=== PATIENT | female | born 1965 | race Caucasian/White ===

== ENCOUNTER 2018-06-12 03:40 | Inpatient (IN) ==
[2018-06-12] MEDS ORDERED: LR 0 ML ONE (05:41)
[2018-06-12] MEDS ORDERED: INVANZ 1 GM/NS 1 GM/50 ML IVPB ONE (05:41)
[2018-06-12] MEDS ORDERED: SENSORCAINE-MPF 0.5%/EPI 1:200,000 ONE (06:27)
[2018-06-12] MEDS ORDERED: LR 1,000 ML ONE ×3 (06:27→15:08)
[2018-06-12] MEDS ORDERED: DIPRIVAN 1% ONE (06:27)
[2018-06-12] MEDS ORDERED: NORCURON ONE ×2 (06:29→10:06)
[2018-06-12] MEDS ORDERED: XYLOCAINE-MPF 2% ONE (06:29)
[2018-06-12] MEDS ORDERED: QUELICIN (DOSE) ONE (06:29)
[2018-06-12] MEDS ORDERED: SODIUM CHLORIDE 0.9% 10 ML ONE (06:29)
[2018-06-12] MEDS ORDERED: VERSED ONE (06:30)
[2018-06-12] MEDS ORDERED: MURI-LUBE MINERAL OIL ONE (06:55)
[2018-06-12] MEDS ORDERED: FENTANYL ONE (07:15)
[2018-06-12] MEDS ORDERED: ZOFRAN ONE (07:20)
[2018-06-12] MEDS ORDERED: DECADRON ONE (07:20)
[2018-06-12] MEDS ORDERED: LUBRIFRESH PM OPH OINTMENT ONE (07:31)
[2018-06-12] MEDS ORDERED: OFIRMEV 1000 MG/ISOTONIC SOLN 1,000 MG/100 ML BOTTLE ONE (09:06)
[2018-06-12] MEDS ORDERED: DILAUDID ONE (09:07)
[2018-06-12] MEDS ORDERED: LOPRESSOR ONE (09:20)
--- NOTE | 2018-06-12 10:40 | OPERATIVE NOTE ---
PROCEDURE DATE: 06/12/2018 PREOPERATIVE DIAGNOSIS: Colorectal cancer. POSTOPERATIVE DIAGNOSIS: Colorectal cancer. PROCEDURE PERFORMED: Cystoscopy and bilateral lighted externalized stent placement. SURGEON: Dr. Ori Pratt. COMPLICATIONS: None. BLOOD LOSS: Minimal. DRAINS: Bilateral externalized stents and 16-German Littlejohn catheter. OPERATIVE FINDINGS: Patient had a normal cystoscopy with no evidence of any urethral stricture. No evidence of mucosal abnormalities in the bladder. No diverticulum, no cellules, no bladder stones. Both ureteral orifices were visualized, effluxing clear urine. Following this, the patient had placement of externalized stents with the Hansa lighted externalized stent system. These externalized stents went in easily and then internal fiberoptics were then inserted and tied to one another. Then a 16-German Littlejohn catheter was then inserted. INDICATIONS FOR PROCEDURE: Ms. Goodman is a 52 year old, who initially presented to General Surgery and was found to have a rectal mass that was a relatively large on biopsy and shown to be colorectal cancer. She underwent chemo and radiation and presented for definitive surgical intervention with Dr. Sequeira. Dr. Sequeira desired placement of externalized lighted ureteral stents. Risks, benefits, and alternatives to surgical procedure discussed with the patient and patient elected to proceed. DESCRIPTION OF PROCEDURE: After informed consent was obtained, the patient was brought to the operating, placed on the operating table in the supine position. She received preoperative antibiotics with Invanz, underwent general anesthesia and was placed into a dorsal lithotomy position. She was prepped and draped in usual sterile fashion. A preoperative time-out was performed with all parties in agreement, including Anesthesia, Surgical and Nursing staff. At which time a 19-German cystourethroscope was inserted through the urethra and entered into the bladder. The urethra appeared to be normal. No evidence of any strictures. The entirety of the bladder was inspected with the 30 degree lens. No evidence of any mucosal abnormalities within the bladder. No diverticulum, no cellules, no evidence of cystocele. Following this, bilateral ureteral orifices were visualized and effluxed clear yellow urine, at which time the Langeloth lighted system was then opened. The externalized stents were then inserted starting on the right, and this was placed to a measurement of 25 cm at the ureteral orifice. The cystourethroscope was removed overlying the stent and then was reinserted for placement of the left stent. Once this was placed at 25 cm endoscopically visualized, the cystoscope was then removed and then the internal fiberoptic cables were then inserted into each of the stents and then hubbed to their appropriate position. Following this, repeat cystourethroscope was performed, which showed good placement of the ureteral catheters. The bladder was left full, and then a 16-German Littlejohn catheter was inserted with good drainage and filled with 10 mL of sterile water. A Silk suture was then tied to both externalized stents to keep them together and in place. This was attached to the right lower extremity. Following this, this terminated my portion of the procedure and Dr. Sequeira took over. For his full operative report of his procedure, please see separately dictated operative note. cc: MD Jessica Allen MD MTDD
[2018-06-12] MEDS ORDERED: ROBINUL ONE (13:39)
[2018-06-12] MEDS ORDERED: NEOSTIGMINE ONE (13:40)
[2018-06-12 14:40] LABS: HEMATOCRIT 29.8 % (37.0-47.0); HEMOGLOBIN 9.1 g/dL (12.0-16.0); MCHC 30.5 g/dL (33-37); MCV 94.9 FL (81-99); MPV 8.4 FL (7.4-10.4); RBC 3.14 XMIL (4.2-5.4); RDW 17.4 % (11.5-14.5); WBC 15.83 X1000 (4.8-10.8)
[2018-06-12 14:54] LABS: AGAP 9; BUN 6 mg/dL (8-22); CALCIUM 8.4 mg/dL (8.8-10.2); CHLORIDE 101 mmol/L (98-107); COSMO 272; CREATININE 0.5 mg/dL (0.5-0.9); ESTIMATED GFR > 60; GLUCOSE 174 mg/dL (70-104); SODIUM 135 mmol/L (136-145); TCO2 25 mmol/L (25-35)
[2018-06-12] MEDS: DILAUDID ONE ×3 (15:06→23:33)
[2018-06-12] MEDS ORDERED: XANAX PO PRN (15:40)
[2018-06-12] MEDS ORDERED: ZOFRAN IV PRN (15:40)
[2018-06-12 16:14] LABS: INR 1.08; PROTIME 14.9 Seconds (11.0-16.0)
[2018-06-12 16:15] LABS: PTT 36.5 Seconds (22.3-41.8)
[2018-06-12] MEDS: LR 1,000 ML IV SCH (16:41)
[2018-06-12 16:47] LABS: URINE SOURCE CATH
[2018-06-12 16:57] LABS: UR EPITHELIAL CELLS <10 /HPF (<10); URINE BACTERIA NEGATIVE /HPF; URINE RBC TNTC /HPF (<10); URINE WBC TNTC /HPF (<10)
[2018-06-12 16:59] LABS: BILIRUBIN URINE NEGATIVE (NEGATIVE); BLOOD URINE LARGE (NEGATIVE); COLOR ORANGE; GLUCOSE URINE NEGATIVE (NEGATIVE); KETONE URINE TRACE mg/dL (NEGATIVE); LEUKOCYTES URINE SMALL (NEGATIVE); NITRITE URINE NEGATIVE (NEGATIVE); PH URINE 6.5; PROTEIN URINE 100 mg/dL (NEGATIVE); SP GRAVITY URINE 1.024; TURBIDITY URINE TURBID (CLEAR); UROBILINOGEN URINE NORMAL (NORMAL)
[2018-06-12] MEDS: DILAUDID IV PRN ×2 (18:18→21:30)
[2018-06-12] MEDS: PERIDEX MT SCH (20:56)
[2018-06-12] MEDS: ZYPREXA PO SCH (20:56)
[2018-06-12] MEDS: ZOCOR PO SCH (20:56)
[2018-06-12] MEDS: OFIRMEV 1000 MG/ISOTONIC SOLN 1,000 MG/100 ML BOTTLE IV SCH (20:56)
--- NOTE | 2018-06-13 01:55 | OPERATIVE NOTE ---
PROCEDURE DATE: 06/12/2018 PREOPERATIVE DIAGNOSIS: Rectal cancer. POSTOPERATIVE DIAGNOSIS: Rectal cancer. PROCEDURES PERFORMED: 1. Robotic laparoscopic assisted low anterior resection with mucous fistula placement. 2. Lighted ureteral stents placed by Dr. Pratt. SURGEON: Geoffrey Sequeira MD. FOUNDRY FINISHER: Kristin Majano MD. ESTIMATED BLOOD LOSS: 100 mL. SPECIMENS: 1. Sigmoid colon and rectum. 2. Presacral biopsy. ANESTHESIA: General. INDICATION FOR PROCEDURE: The patient is a 52-year-old female with a low rectal carcinoma who is status post neoadjuvant therapy and is local locally advanced on her imaging. FINDINGS: There was a tattoo lesion that was consistent with her preoperative examination. It was somewhat smaller, but remained very firm and fixed posteriorly. From a transabdominal view, there was what appeared to be gross extra rectal extension into the presacral tissues, with focal purulence consistent with perforation of the tumor, but no evidence of metastatic disease widely. DESCRIPTION OF PROCEDURE: Risks, benefits and alternatives discussed with the patient and she consented to the procedure. She was seen preoperatively and surgical site was confirmed. She was taken to the operating room and placed in the supine position. General anesthesia was induced without complication. All bony prominences were padded. She was then placed in lithotomy. All bony prominences were padded. Her abdomen and perineum was prepped and draped in usual fashion. After time-out Dr. Pratt placed lighted stents bilaterally, for details please see his record after this. We closed her ostomy with a Prolene suture and covered with a Tegaderm dressing. We then made an incision in the supraumbilical midline approximately 20 cm superior to the pubic symphysis, and entered the abdomen in an open controlled fashion and it was then insufflated. We then selected a place for our stapler arm between the lateral to the ileostomy and midway between the ASIS and umbilicus. We placed this under direct visualization protecting the ileostomy. We then placed a far left lateral port just above the white line of Toldt, and placed another trocar in the left upper quadrant and an assistant director of nursing trocar in the right upper quadrant. We then mobilized the small bowel out of the pelvis, this was easily done. The robot was docked. We used a Cadiere forceps in her left hand, hook cautery in the right, and a combination of a vessel sealer in her right, and a grasping retractor in her accessory hand. We identified the SOUMYA pedicle and divided this above the level of the sacral promontory with a vessel sealer device. We then continued our medial to lateral dissection using the lighted stents as we went to confirm the position of the ureter and we protected these. We then continued our dissection distally. This plane was relatively normal; however, as we began about the level of sacral promontory we began encountering both peritumoral and post radiation changes. We had to work in a combination fashion both posterior and anterior to establish this plane, and laterally. We encounter tumor densely posteriorly in right lateral. The left lateral and anterior plane did show radiation changes, but no gross tumor deposits here. We worked for some time here protecting the retroperitoneal structures and the presacral plexus; however, we could not make progress. At this point we felt we were going to need to convert to a lower midline open approach for the pelvic portion, but we did mobilize the left colon laparoscopically along the avascular plane of the white line, and then we also did firefly to confirm that we had adequate perfusion of our descending colon and we did. At this point we undocked the robot, but we did not confirm hemostasis prior to doing all this. We made a lower midline incision and used a Kareem retractor and we continued our dissection, I got Dr. Majano to help with this as it was densely inflamed posteriorly, we are obviously concerned about the presacral veins, but we were able through a combination of blunt and electrocautery dissection mobilize this posteriorly. At the site of the tumor, there did appear to be a posterior extension into the presacral area, very inflamed. We took a biopsy of this presacral mass. There is also some purulence here consistent with rectal perforation related to the tumor, but we were able to complete our circumferential dissection and we were able to get to an area distal that was normal, and we transected this with a green load TA stapler. The distal rectal stump was very friable, we had close it with a 3-0 Vicryl. Given all these findings and the possibility of gross residual tumor, we elected to not create an anastomosis. She was already diverted with an ileostomy that she has been managing well. We confirmed hemostasis and irrigated the pelvis. We elected to create a mucous fistula with the descending colon. We ligated the marginal artery, and then the proximal colon was resected with a EDGARD stapler. We noted hemostasis. All bowel was in neutral position. There was no gross spillage of stool. Our distal staple line of the rectum was approximately 3 cm above the pelvic floor, quite low. Opening the specimen we did note that we had good proximal and distal margins, but obviously very concerned about our radial margin. At this point, we closed our trocar fascial incisions, and then closed the midline fascia with a running single strand #1 PDS suture. We irrigated the superficial wound. We closed the lower midline with lambert, but prior to closing this I made a circular incision overlying the left rectus for our mucous fistula and brought the corner of the colon out through this. After we closed all incisions, I removed the corner and matured this with 3-0 Vicryl sutures at the skin level. A dressing was applied here, Dermabond to the port sites. Overall she tolerated this well. There was no complication. Counts were correct x2. She has awoken and transferred to recovery. I did remove her ureteral stents at the end of the case. Dr. Majano was present during the open portion of this operation. He facilitated identification of anatomy and our dissection given the dense post radiation and neoplastic changes. cc: Jessica Sequeira MD [facility]
[2018-06-13] MEDS: OFIRMEV 1000 MG/ISOTONIC SOLN 1,000 MG/100 ML BOTTLE IV SCH ×3 (02:49→15:33)
[2018-06-13] MEDS: DILAUDID IV PRN ×7 (03:38→22:03)
[2018-06-13 06:18] LABS: HEMATOCRIT 26.3 % (37.0-47.0); HEMOGLOBIN 7.9 g/dL (12.0-16.0); MCH 29.2 PG (27-31); MPV 8.8 FL (7.4-10.4); RBC 2.71 XMIL (4.2-5.4); RDW 17.8 % (11.5-14.5); WBC 12.73 X1000 (4.8-10.8)
[2018-06-13 06:30] LABS: AGAP 12; BUN 5 mg/dL (8-22); CALCIUM 8.7 mg/dL (8.8-10.2); CHLORIDE 105 mmol/L (98-107); COSMO 282; CREATININE 0.5 mg/dL (0.5-0.9); ESTIMATED GFR > 60; GLUCOSE 96 mg/dL (70-104); POTASSIUM 4.1 mmol/L (3.5-5.1); SODIUM 143 mmol/L (136-145); TCO2 26 mmol/L (25-35)
--- NOTE | 2018-06-13 07:57 | PROGRESS NOTE ---
DATE: 06/13/2018 SUBJECTIVE: Postoperative day 1 from cystoscopy and bilateral externalized stent placement and robotic laparoscopic-assisted lower anterior resection with mucous fistula placement by Dr. Sequeira. The patient has been doing well overnight. She is having a little bit of pain, but appears to be appropriate. She had a little bit of bloody urine output after removal of externalized stents; however, her urine is clear, yellow this morning. She denies any flank pain. PHYSICAL EXAMINATION: Vital signs: Temperature 98.5 degrees, heart rate 102, blood pressure 123/76, oxygen saturation 97% on room air. Cardiovascular: Slight tachycardia this morning. Regular rhythm. Respiratory: Good respiratory effort without audible wheezing or rales. Abdomen: Soft, nontender, nondistended. Abdominal incisions closed with Dermabond. Cutaneous fistula present in right lower quadrant, covered with bag. : Without suprapubic tenderness. Urethral catheter in place with clear, yellow urine. LABS: White blood cell count 12.73, hemoglobin 7.9, hematocrit 26.3, platelets 504,000. Sodium 143, potassium 4.1, chloride 105, bicarb 5, creatinine 0.5, glucose 96. ASSESSMENT AND PLAN: Ms. Goodman is a 52-year-old who is postop day 1 from a robotic-assisted laparoscopic removal of a rectal mass with placement of externalized ureteral stents by Urology. Overall, patient has been doing well from a urologic standpoint, has made good urinary output overnight. Her urine is clear. No evidence of blood present. We will continue Littlejohn catheter per GI surgery protocol. We will continue to monitor her renal function. If any urologic issues arise, please notify Urology on-call. We will sign off at this time. No need for postop follow up with Urology unless issues arise. cc: MD Jessica Allen MD MTDD
[2018-06-13] MEDS: LR 1,000 ML IV SCH ×3 (09:11→18:02)
[2018-06-13] MEDS: PERIDEX MT SCH ×2 (09:13→20:08)
[2018-06-13] MEDS: LOVENOX SUBQ SCH (09:14)
[2018-06-13] MEDS: CYMBALTA PO SCH (09:14)
--- NOTE | 2018-06-13 10:59 | GENERAL SURGERY PROGRESS NOTE ---
DATE: 06/13/2018 SUBJECTIVE: She feels much better this morning. The ostomy is working. No vomiting. She is tolerating clear liquids. OBJECTIVE: Vital Signs: I reviewed her vital signs. Low-grade tachycardia. No fevers. Blood pressure 124/71, oxygen saturations mid to high 90s on 2 L. General: She is alert. Abdomen: Soft. Ostomy is pink. LABS: White count 12, hematocrit 26, creatinine is 0.5. ASSESSMENT AND PLAN: A 52-year-old female status post low anterior resection. She already had a diverting loop and now we created a mucous fistula distally. She is overall doing okay. She is on appropriate home medications. We will keep her Littlejohn given her low pelvic dissection. She is on prophylactic Lovenox. Continue her fluids as well. She was a little dehydrated coming in. She is on Tylenol. I have encouraged her to be out of bed today and ambulate. I suspect we can discontinue her Littlejohn and advance her diet. cc: Jessica Sequeira MD
[2018-06-13] MEDS: ZOCOR PO SCH (20:08)
[2018-06-13] MEDS: ZYPREXA PO SCH (20:08)
[2018-06-14] MEDS: DILAUDID IV PRN ×5 (01:04→14:19)
[2018-06-14] MEDS: LR 1,000 ML IV SCH (01:07)
[2018-06-14] MEDS: LOVENOX SUBQ SCH (09:30)
[2018-06-14] MEDS: CYMBALTA PO SCH (09:30)
[2018-06-14] MEDS: PERIDEX MT SCH (09:30)
[2018-06-14 09:41] LABS: AGAP 8; BUN 3 mg/dL (8-22); CALCIUM 8.9 mg/dL (8.8-10.2); CHLORIDE 103 mmol/L (98-107); COSMO 277; CREATININE 0.5 mg/dL (0.5-0.9); ESTIMATED GFR > 60; GLUCOSE 114 mg/dL (70-104); POTASSIUM 3.1 mmol/L (3.5-5.1); SODIUM 140 mmol/L (136-145); TCO2 29 mmol/L (25-35)
[2018-06-14] MEDS ORDERED: POTASSIUM CHLORIDE 10% LIQUID PO ONE (10:59)
[2018-06-14 12:04] LABS: BASO# 0.02 X1000 (0.0-0.2); BASO% 0.1 % (0.0-0.8); EOS# 0.07 X1000 (0.0-0.7); EOS% 0.5 % (0.0-10.0); HEMOGLOBIN 8.6 g/dL (12.0-16.0); IMM GRAN% 0.7 % (0.0-0.5); LYMPH% 1.4 % (20.5-51.1); MCHC 29.7 g/dL (33-37); MCV 97.6 FL (81-99); MONO# 0.72 X1000 (0.11-0.59); MONO% 5.1 % (1.7-9.3); MPV 8.3 FL (7.4-10.4); NEUT# 12.98 X1000 (1.4-6.5); NEUT% 92.2 % (42.2-75.2); PLT 560 X1000 (130-400); RBC 2.97 XMIL (4.2-5.4); RDW 17.1 % (11.5-14.5); WBC 14.09 X1000 (4.8-10.8)
[2018-06-14 12:49] VITALS: BP 135/71
== END 2018-06-14 14:44 | disposition home or self-care (01) | DRG 329 ==
LOC: SURHOLD 03:40 → EDSTATUS 07:00 → 4N 10:26
PROVIDERS: ADMIT Surgery; ATTEND Surgery
CPT/HCPCS: 80048; 81001; 85025; 85027; 85610; 85730; 87088; 88305; 88309; 88313; 94761; 94799; 97116; 97162; 97530; A9270; J0131; J0330; J1100; J1170; J1335; J1650; J2250; J2405; J3010; J7120; S2900

== ENCOUNTER 2019-01-03 16:12 | Inpatient (IN) ==
[2019-01-03] MEDS ORDERED: NS 1,000 ML IV ONE ×3 (16:45→20:39)
[2019-01-03 16:55] LABS: BLOOD TYPE ARTERIAL; HCO3-(ACT) 23.4 mmoll (20.0-26.0); METHB 0.7 % (0.0-1.5); O2(CT) 12.5 mL/dL (15.0-23.0); O2HB 95.6 % (95.0-99.0); PCO2(98.6) 32 mmHg (35-45); PO2(98.6) 81 mmHg (60-100); SAMPLE BLOOD; SAO2 98.1 % (95.0-100.0); THB 9.2 g/dL (11.5-17.4); pH(98.6) 7.44 (7.35-7.45)
[2019-01-03 16:57] LABS: ALLEN TEST NO; MODALITY ROOM AIR
[2019-01-03 16:58] LABS: BASO# 0.05 X1000 (0.0-0.2); EOS# 0.01 X1000 (0.0-0.7); EOS% 0.2 % (0.0-10.0); HEMATOCRIT 27.9 % (37.0-47.0); HEMOGLOBIN 9.3 g/dL (12.0-16.0); IMM GRAN# 0.09 X1000 (0.0-0.04); IMM GRAN% 1.9 % (0.0-0.5); LYMPH# 0.48 X1000 (1.2-3.4); LYMPH% 10.1 % (20.5-51.1); MCH 35.2 PG (27-31); MCHC 33.3 g/dL (33-37); MCV 105.7 FL (81-99); MONO# 1.54 X1000 (0.11-0.59); MONO% 32.3 % (1.7-9.3); MPV 9.9 FL (7.4-10.4); NEUT% 54.5 % (42.2-75.2); PLT 124 X1000 (130-400); RBC 2.64 XMIL (4.2-5.4); RDW 15.9 % (11.5-14.5); WBC 4.77 X1000 (4.8-10.8)
[2019-01-03 17:04] LABS: INR 1.13; PROTIME 15.4 Seconds (11.0-16.0)
[2019-01-03 17:05] LABS: PTT 31.8 Seconds (22.3-41.8)
[2019-01-03 17:14] LABS: BANDS 4 % (0-1); LYMPHS 11 % (21-51); MONO 16 % (1-9); NRBC 4 % (0-0); SEGS 65 % (42-75)
[2019-01-03 17:15] LABS: AGAP 14; ALB/GLOB RATIO 1.5; ALBUMIN 3.5 g/dL (3.5-5.0); ALKALINE PHOSPHATASE 158 U/L (32-104); BUN 6 mg/dL (8-22); CHLORIDE 98 mmol/L (98-107); CK PROFILE 22 U/L (24-173); COSMO 269; CREATININE 0.9 mg/dL (0.5-0.9); ESTIMATED GFR > 60; GLUCOSE 123 mg/dL (70-104); GOT 17 U/L (10-30); GPT 12 U/L (10-36); POTASSIUM 3.4 mmol/L (3.5-5.1); SODIUM 135 mmol/L (136-145); STOMATOCYTES 1+; TCO2 23 mmol/L (25-35); TOTAL BILIRUBIN 0.36 mg/dL (0.20-1.00); TOTAL PROTEIN 5.9 g/dL (6.3-8.3)
[2019-01-03] MEDS ORDERED: ROCEPHIN 1 GM in NS 50 ML IV ONE (17:22)
--- NOTE | 2019-01-03 17:41 | Diag Imaging Result Doc PS360 ---
CHEST-PORTABLE - 01/03/2019 INDICATION: pna COMPARISON: 04/13/2018 FINDINGS: Stable right chest port in good position. The lungs are clear. Heart size is normal. No pneumothorax or pleural effusion. IMPRESSION: Negative exam. Electronically signed by Chele Wright 01/03/2019 5:39 PM
[2019-01-03 18:33] LABS: URINE SOURCE VOIDED
[2019-01-03 18:37] LABS: BILIRUBIN URINE NEGATIVE (NEGATIVE); BLOOD URINE TRACE (NEGATIVE); COLOR YELLOW; GLUCOSE URINE NEGATIVE (NEGATIVE); KETONE URINE NEGATIVE (NEGATIVE); LEUKOCYTES URINE LARGE (NEGATIVE); NITRITE URINE NEGATIVE (NEGATIVE); PROTEIN URINE 70 mg/dL (NEGATIVE); TURBIDITY URINE HAZY (CLEAR); UROBILINOGEN URINE NORMAL (NORMAL)
[2019-01-03 18:40] LABS: UR EPITHELIAL CELLS <10 /HPF (<10); URINE BACTERIA NEGATIVE /HPF; URINE RBC <10 /HPF (<10); URINE WBC TNTC /HPF (<10)
--- NOTE | 2019-01-03 20:11 | PROVIDER DOCUMENTATION ---
This chart was entered by Lisa Garcia Scribe, acting as scribe for Kizzy Johnston MD. HPI-Syncope/Dizziness - General Chief Complaint: Syncope Stated Complaint: SYNCOPE,LOW BP,COLON CANCER Time Seen by Provider: 01/03/19 16:23 Source: patient, family (mom) Allergies/Adverse Reactions: Patient Allergies Allergy/AdvReac Type Severity Reaction Status Date / Time No Known Allergies Allergy Verified 12/02/18 10:26 Home Medications: Home Medication List Medication Instructions Recorded Confirmed Last Taken Type Simvastatin 40 mg PO HS 10/23/12 12/02/18 12/02/18 09:00 History Duloxetine [Cymbalta] 60 mg PO DAILY 03/04/18 12/02/18 12/02/18 09:00 History Olanzapine [Zyprexa] 5 mg PO QHS 04/13/18 12/02/18 12/02/18 09:00 History Diphenoxylate/Atropine [Lomotil] 1 each PO 4XDAY PRN PRN #60 tablet 04/15/18 12/02/18 06/12/18 04:30 Rx Alprazolam 0.5 mg PO PRN PRN 06/02/18 12/02/18 12/02/18 09:00 History Levothyroxine [Synthroid] 25 microgm PO DAILY 06/02/18 12/02/18 12/02/18 09:00 History Loperamide [Imodium] 2 mg PO PRN PRN 06/02/18 12/02/18 11/30/18 History - History of Present Illness-Syncope/Dizzy Nature of Presenting Problem: 53yof presents to ED cc syncope, dizziness, decreased appetite and decreased blood pressure. Pt has hx of rectal cancer and is on Chemo. Pt denies N/V/D, SOB or chest pain. Prior Episodes: reports: remote history Onset/Duration: reports: this afternoon Timing: reports: gone now, intermittent Position/Activity at time of episode: reports: standing Symptoms prior to episode: reports: visual disturbance Context: reports: collapsed Loss of Consciousness: no loss of consciousness Location of injury. (If syncope resulted in an injury.): reports: none Current Symptoms: reports: none/feels normal Recently Seen Here or By Another Healthcare Provider: No - Dizziness Dizziness Related Current/Associated Symptoms: reports: none/feels normal Review of Systems - Adult - REVIEW OF SYSTEMS - ADULT Constitutional: reports: see HPI, fatique. denies: chills, fever Eyes: reports: no symptoms reported Ears, Nose, Mouth & Throat: reports: no symptoms reported Cardiovascular: reports: see HPI, other (decreased blood pressure). denies: chest pain, palpitations Respiratory: reports: no symptoms reported Gastrointestinal: reports: see HPI, poor appetite. denies: diarrhea, nausea, vomiting Genitourinary: reports: no symptoms reported Musculoskeletal: reports: no symptoms reported Integumentary: reports: no symptoms reported Neurological: reports: see HPI, dizziness/vertigo, syncope. denies: headache/migraines, slurred speech Psychiatric: reports: no symptoms reported Endocrine: reports: no symptoms reported Hematologic/Lymphatic: reports: no symptoms reported Allergic/Immunologic: reports: no symptoms reported All Other Systems: Reviewed and Negative Past History - Adult - PAST MEDICAL HISTORY-ADULT Review of Records: reports: Nursing Assessment Review, Medications Reviewed, Social history reviewed & non-contributory. Major Childhood Illnesses: reports: denies history Cardiovascular: reports: denies history Respiratory: reports: denies history Gastrointestinal: reports: denies history Obstetrical/Gynecological: reports: denies history Genitourinary: reports: denies history Musculoskeletal: reports: denies history Neurological: reports: denies history Endocrine/Immune: reports: denies history Other Conditions: reports: denies history - IMMUNIZATION STATUS Childhood Immunizations: See Nurse Assessment Flu Vaccine: See Nurse Assessment - FAMILY HISTORY Family History: reviewed, not pertinent Physical Exam-General - PHYSICAL EXAM-ADULT Initial Vital Signs Reviewed: Yes - CONSTITUTIONAL General Appearance: appears well, alert, no apparent distress. negative: anxious, combative - EYES Eyes: PERRL/EOMI, pink conjunctivae. negative: meningismus, pale conjunctivae, photophobia - HEAD, EARS, NOSE, MOUTH & THROAT HENMT: normocephalic/atraumatic, moist mucous membranes, normal ENT inspection. negative: angioedema, dental decay, hearing deficit - NECK Neck: non-tender, full range of motion, supple, normal inspection. negative: C- spine tenderness - RESPIRATORY Respiratory: chest non-tender, lungs clear, normal breath sounds, no pleuratic chest pain, no respiratory distress, no accessory muscle use. negative: crackle s, rales, rhonchi, stridor, wheezing - CARDIOVASCULAR Cardiovascular: normal peripheral pulses, regular rate, rhythm, no edema, no gallop, no JVD, no murmur. negative: bradycardia, tachycardia - GASTROINTESTINAL (ABDOMEN) Abdominal Exam: normal bowel sounds, non tender, soft, no organomegaly, no pulsatile mass, other (pt has colostomy bag on right side, no redness). n egative: distended, guarding, rigid, rebound, tenderness, hernia, mass - LYMPHATIC Lymphatic: no adenopathy. negative: striations - MUSCULOSKELETAL Back Exam: normal inspection, no CVA tenderness, no vertebral tenderness. negative: kyphosis, swelling Extremity: normal range of motion, non-tender, normal gait, normal inspection, no pedal edema, no calf tenderness, normal capillary refill, pelvis stable. negative: deformity, swelling - SKIN Integumentary: normal color, normal turgor, warm/dry. negative: cyanosis, diaphoresis, jaundice, swelling - NEUROLOGIC Neurologic: cornice maker II-XII nml as tested, grossly normal, no motor/sensory deficits. negative: facial droop, focal weakness - PSYCHIATRIC Psych/Mental Status: normal mood/affect, normal thought content, normal thought process, oriented x 3. negative: disoriented x 3, anxious, disheveled, depressed affect Progress - PLAN OF CARE/RESULTS Progress/Plan/Lab Results: Vital Signs - 8 hr 01/03/19 16:16 01/03/19 16:39 01/03/19 16:41 Temperature 97.6 F Pulse Rate 121 H 120 H 117 H Respiratory Rate 18 15 18 Blood Pressure 73/47 60/40 64/41 O2 Sat by Pulse Oximetry 95 98 98 01/03/19 16:43 01/03/19 16:51 01/03/19 17:07 Temperature Pulse Rate 113 H 110 H 101 H Respiratory Rate 29 H 15 24 Blood Pressure 72/40 67/43 64/39 O2 Sat by Pulse Oximetry 98 99 98 01/03/19 17:16 Temperature Pulse Rate 99 H Respiratory Rate 23 Blood Pressure 63/37 O2 Sat by Pulse Oximetry 97 Laboratory Results - last 24 hr 01/03/19 01/03/19 01/03/19 16:30 16:42 16:42 WBC 4.77 L RBC 2.64 L Hgb 9.3 L Hct 27.9 L MCV 105.7 H MCH 35.2 H MCHC 33.3 RDW Std Deviation 15.9 H Plt Count 124 L MPV 9.9 Immature Gran % (Auto) 1.9 H Neut % (Auto) 54.5 Lymph % (Auto) 10.1 L [place] % (Auto) 32.3 H Eos % (Auto) 0.2 Baso % (Auto) 1.0 H Immature Gran # (Auto) 0.09 H Neut # (Auto) 2.60 Lymph # (Auto) 0.48 L [place] # (Auto) 1.54 H Eos # (Auto) 0.01 Baso # (Auto) 0.05 Segmented Neutrophils 65 Band Neutrophils 4 H Lymphocytes 11 L Monocytes 16 H Myelocytes 4.0 Nucleated RBCs 4 H Macrocytosis 1+ Stomatocytes 1+ PT INR PTT (Actin FS) Specimen Type Sample Site pH pCO2 pO2 HCO3 Base Excess Oxyhemoglobin ABG O2 Sat (Calculated) ABG O2 Saturation ABG Carboxyhemoglobin ABG Methemoglobin Dawood Test Total Hemoglobin Lactate Blood Gas Modality FiO2 % Sodium 135 L Potassium 3.4 L Chloride 98 Carbon Dioxide 23 L Anion Gap 14 BUN 6 L Creatinine 0.9 Estimated GFR/1.73 m2 > 60 BUN/Creatinine Ratio 7 Glucose 123 H POC Glucose 136 H Calculated Osmolality 269 Calcium 9.0 Magnesium Total Bilirubin 0.36 AST 17 ALT 12 Alkaline Phosphatase 158 H Creatine Kinase 22 L Troponin T Total Protein 5.9 L Albumin 3.5 Globulin 2.4 Albumin/Globulin Ratio 1.5 Plasma Lactate Urine Source Urine Color Urine Turbidity Urine pH Ur Specific [place] Urine Protein Ur Glucose (Stick) Ur Ketones (Stick) Urine Blood Urine Nitrite Urine Bilirubin Urobilinogen Dipstick Urine Leukocytes Urine WBC (Auto) Urine RBC (Auto) U Epithel Cells (Auto) Urine Bacteria (Auto) 01/03/19 01/03/19 01/03/19 16:42 16:42 16:42 WBC RBC Hgb Hct MCV MCH MCHC RDW Std Deviation Plt Count MPV Immature Gran % (Auto) Neut % (Auto) Lymph % (Auto) [place] % (Auto) Eos % (Auto) Baso % (Auto) Immature Gran # (Auto) Neut # (Auto) Lymph # (Auto) [place] # (Auto) Eos # (Auto) Baso # (Auto) Segmented Neutrophils Band Neutrophils Lymphocytes Monocytes Myelocytes Nucleated RBCs Macrocytosis Stomatocytes PT 15.4 INR 1.13 PTT (Actin FS) 31.8 Specimen Type Sample Site pH pCO2 pO2 HCO3 Base Excess Oxyhemoglobin ABG O2 Sat (Calculated) ABG O2 Saturation ABG Carboxyhemoglobin ABG Methemoglobin [place]wood Test Total Hemoglobin Lactate Blood Gas Modality FiO2 % Sodium Potassium Chloride Carbon Dioxide Anion Gap BUN Creatinine Estimated GFR/1.73 m2 BUN/Creatinine Ratio Glucose POC Glucose Calculated Osmolality Calcium Magnesium Total Bilirubin AST ALT Alkaline Phosphatase Creatine Kinase Troponin T < 0.010 Total Protein Albumin Globulin Albumin/Globulin Ratio Plasma Lactate 2.8 H Urine Source Urine Color Urine Turbidity Urine pH Ur Specific [place] Urine Protein Ur Glucose (Stick) Ur Ketones (Stick) Urine Blood Urine Nitrite Urine Bilirubin Urobilinogen Dipstick Urine Leukocytes Urine WBC (Auto) Urine RBC (Auto) U Epithel Cells (Auto) Urine Bacteria (Auto) 01/03/19 01/03/19 01/03/19 16:42 16:50 18:25 WBC RBC Hgb Hct MCV MCH MCHC RDW Std Deviation Plt Count MPV Immature Gran % (Auto) Neut % (Auto) Lymph % (Auto) [place] % (Auto) Eos % (Auto) Baso % (Auto) Immature Gran # (Auto) Neut # (Auto) Lymph # (Auto) [place] # (Auto) Eos # (Auto) Baso # (Auto) Segmented Neutrophils Band Neutrophils Lymphocytes Monocytes Myelocytes Nucleated RBCs Macrocytosis Stomatocytes PT INR PTT (Actin FS) Specimen Type ARTERIAL Sample Site R BRACHIAL pH 7.44 pCO2 32 L pO2 81 HCO3 23.4 Base Excess -2.0 Oxyhemoglobin 95.6 ABG O2 Sat (Calculated) 12.5 L ABG O2 Saturation 98.1 ABG Carboxyhemoglobin 1.80 ABG Methemoglobin 0.7 Dawood Test NO Total Hemoglobin 9.2 L Lactate 2.50 H Blood Gas Modality ROOM AIR FiO2 % 21.0 Sodium Potassium Chloride Carbon Dioxide Anion Gap BUN Creatinine Estimated GFR/1.73 m2 BUN/Creatinine Ratio Glucose POC Glucose Calculated Osmolality Calcium Magnesium 1.6 Total Bilirubin AST ALT Alkaline Phosphatase Creatine Kinase Troponin T Total Protein Albumin Globulin Albumin/Globulin Ratio Plasma Lactate Urine Source VOIDED Urine Color YELLOW Urine Turbidity HAZY Urine pH 6.0 Ur Specific [place] 1.020 Urine Protein 70 A Ur Glucose (Stick) NEGATIVE Ur Ketones (Stick) NEGATIVE Urine Blood TRACE A Urine Nitrite NEGATIVE Urine Bilirubin NEGATIVE Urobilinogen Dipstick NORMAL Urine Leukocytes LARGE A Urine WBC (Auto) TNTC A Urine RBC (Auto) <10 U Epithel Cells (Auto) <10 Urine Bacteria (Auto) NEGATIVE 01/03/19 18:41 WBC RBC Hgb Hct MCV MCH MCHC RDW Std Deviation Plt Count MPV Immature Gran % (Auto) Neut % (Auto) Lymph % (Auto) [place] % (Auto) Eos % (Auto) Baso % (Auto) Immature Gran # (Auto) Neut # (Auto) Lymph # (Auto) [place] # (Auto) Eos # (Auto) Baso # (Auto) Segmented Neutrophils Band Neutrophils Lymphocytes Monocytes Myelocytes Nucleated RBCs Macrocytosis Stomatocytes PT INR PTT (Actin FS) Specimen Type Sample Site pH pCO2 pO2 HCO3 Base Excess Oxyhemoglobin ABG O2 Sat (Calculated) ABG O2 Saturation ABG Carboxyhemoglobin ABG Methemoglobin Dawood Test Total Hemoglobin Lactate Blood Gas Modality FiO2 % Sodium Potassium Chloride Carbon Dioxide Anion Gap BUN Creatinine Estimated GFR/1.73 m2 BUN/Creatinine Ratio Glucose POC Glucose Calculated Osmolality Calcium Magnesium Total Bilirubin AST ALT Alkaline Phosphatase Creatine Kinase Troponin T Total Protein Albumin Globulin Albumin/Globulin Ratio Plasma Lactate 2.1 Urine Source Urine Color Urine Turbidity Urine pH Ur Specific [place] Urine Protein Ur Glucose (Stick) Ur Ketones (Stick) Urine Blood Urine Nitrite Urine Bilirubin Urobilinogen Dipstick Urine Leukocytes Urine WBC (Auto) Urine RBC (Auto) U Epithel Cells (Auto) Urine Bacteria (Auto) Orders Category Date Time Status Cardiac Monitoring DIRECTED Care 01/03/19 16:24 Active Finger Stick Blood Sugar (ED) DIRECTED Care 01/03/19 16:24 Active Notify MD of + Sepsis Screen NOW Care 01/03/19 18:08 Active Oxygen Therapy- ED Nursing DIRECTED Care 01/03/19 16:24 Active Saline Loc NOW Care 01/03/19 16:24 Active CHEST-PORTABLE [RAD] Stat Exams 01/03/19 16:[address] HEAD W/O CONTRAST [CT] Stat Exams 01/03/19 16:25 Ordered ABG [RESP] Routine Lab 01/03/19 16:50 Completed BLOOD CULTURE [BLDCUL] Stat Lab 01/03/19 18:53 Results CBC WITH ELECTRONIC DIFF [HEME] Stat Lab 01/03/19 16:42 Completed CK PROFILE [SP CHEM] Stat Lab 01/03/19 16:42 Completed COMPREHENSIVE METABOLIC PANEL [CHEM] Stat Lab 01/03/19 16:42 Completed LACTATE, PLASMA [CHEM] Lab 01/03/19 18:41 Completed LACTATE, PLASMA [CHEM] Lab 01/03/19 21:15 Uncollected LACTATE, PLASMA [CHEM] Lab 01/04/19 00:15 Uncollected LACTATE, PLASMA [CHEM] Stat Lab 01/03/19 16:42 Completed MAGNESIUM [CHEM] Stat Lab 01/03/19 16:42 Completed PROTIME WITH INR [COAG] Stat Lab 01/03/19 16:42 Completed PTT [COAG] Stat Lab 01/03/19 16:42 Completed TROPONIN T Stat Lab 01/03/19 16:42 Completed URINALYSIS [URINALYSIS] Stat Lab 01/03/19 18:25 Completed 0.9% Sodium Chloride Inj [Ns] 1,000 ml Med 01/03/19 16:45 Discontinued IV 999 mls/hr 0.9% Sodium Chloride Inj [Ns] 1,000 ml Med 01/03/19 18:07 Discontinued IV 999 mls/hr CefTRIAXONE [Rocephin] 1 gm Med 01/03/19 17:22 Discontinued 0.9% Sodium Chloride Inj [Ns] 50 ml IV NOW Altered Mental Status Stat Oth 01/03/19 16:24 Ordered Oxygen Device Stat Oth 01/03/19 18:08 Active EKG [EKG] Stat Ther 01/03/19 16:24 Ordered Result Diagrams: 01/03/19 16:42 01/03/19 16:42 - EKG 1 Time of EKG reading by physician:: 16:47 EKG Read and Signed by:: Kizzy Johnston EKG Interpretation (*Must complete 3 of following elements*): Normal Rate: 116 [place]: normal (tachycardia) CA Interval: normal ST Wave: normal - CONSULTS/PCP/HOSPITALIST Notification #1 *Consult/PCP/Hospitalist*: Dr. English Time Discussed: 20:10 Consult Disposition: Admit Departure - Departure Date of Disposition Decision: 01/03/19 Time of Disposition Decision: 20:10 DIAGNOSIS: Sepsis, Syncope Disposition: ADMITTED INPATIENT 09 Certified Medical Emergency: Emergent Condition: Stable Additional Freetext Instructions: ED Follow Up Instructions: You have been treated by a care provider in the Emergency Department. These instructions are being provided to you so you can have an understanding of how to care for yourself upon discharge. [facility] you are responsible for making arrangements for follow-up care by a physician of your choice. Take all prescribed medications as directed. Return to the Emergency Department immediately for any new or worsening symptoms. You may call the Physician Referral phone number at [phone] to obtain a list of Physicians who are taking new patients. Referrals and Follow-Ups: Noam Moody MD [Primary Care Provider] - - Critical Care Note This patient required my direct & personal management of CC.: Yes Total Time (mins): 36 Critical Care Statement: This patient required my direct personal management to treat or rule out processes, the absence of which, could potentiallly result in sudden, clinically significant life or limb threatening deterioration. Attestation - Physician/ VIRGEN Attestation Patient care was provided by Advanced Practice Provider:: No The physician spent face to face time with patient:: Yes Advanced Practice Provider documentation review:: Supervising physician onsite and consulted in the evaluation and care of this patient. The physician did have a face to face encounter with the patient. This chart was documented by the indicated scribe, (Lisa Garcia, Alan) and accurately reflects the services I performed and decisions made by me, Kizzy Johnston MD, as attested by the provider's signature.
[2019-01-03] MEDS ORDERED: LEVOPHED 8 MG in D5 1/2 NS 250 ML IV SCH (20:15)
--- NOTE | 2019-01-03 20:36 | Diag Imaging Result Doc PS360 ---
CT HEAD W/O CONTRAST - 01/03/2019 INDICATION: syncope COMPARISON: 04/13/2018 FINDINGS: The ventricles and sulci are normal in size and contour. No intracranial mass or hemorrhage. The skull is intact. The sinuses mastoids and middle ears are clear. IMPRESSION: Negative exam. This exam was performed using automated exposure control, adjustment of mA or kV according to patient size, and/or use of iterative reconstruction technique Electronically signed by Chele Wright 01/03/2019 8:33 PM
[2019-01-03] MEDS ORDERED: KLOR-CON PO ONE (20:55)
--- NOTE | 2019-01-03 21:41 | HISTORY AND PHYSICAL ---
PHYSICIANS: Ivory Mckeon MD; Noam Moody MD REASON FOR ADMISSION: Three presyncopal episodes today. HISTORY OF PRESENT ILLNESS: Ms. Cinthia Goodman is an unfortunate 53-year-old woman with past medical history of colon cancer, status post colectomy with an ileostomy done last year. She has been receiving fortnightly chemotherapy since February of last year, and has been admitted once since then for a syncopal spell secondary to hypotension. Today the patient was brought in because she slumped on 3 separate occasions over the course of 2 hours, twice outside, and the third time when her friends brought her home, her legs gave out on her. The parents who are at the bedside and the patient all state that she never lost consciousness. The patient says she was always aware of events around her and just became suddenly weak and her legs gave out, requiring nearby people to assist her gently down to the floor. EMS was contacted. Blood pressure was 70/40. She was given fluids and brought to the ER. Blood pressure remained in the 60s and 70s. She was given 2 L of fluid. Her blood pressure is now 87/54 with a MAP of 66. When I saw the patient, she denied any fever or chills, GI complaints, genitourinary complaints, focal neurological complaints, cardiorespiratory complaints, polyuria or polydipsia. No pain, no abdominal pain. No pleuritic pain. The patient currently says she feels much better since receiving 2 L of fluid. She denies any bleeding from any orifice. She reports that she usually gets these spells at least 1 to 2 times a week when she goes for chemotherapy, and they usually give her a bolus of fluids and send her home. REVIEW OF SYSTEMS: Twelve system review was done. Positive findings per HPI, except for poor oral intake according to the mother. MEDICATIONS: Her home medications have not been reconciled. ALLERGIES: She has no known allergies. PAST SURGICAL HISTORY: She had ileostomy, hysterectomy, 2 left hip surgeries, left knee surgery. SOCIAL HISTORY: She lives with her mother and father. She does not smoke, drink or use illicit drugs. FAMILY HISTORY: The patient is adopted. PAST MEDICAL HISTORY: Hypertension, hyperlipidemia, recurrent UTIs. LABORATORY DATA: White count 4000, hemoglobin and hematocrit 9 and 27, MCV 105, platelets 124,000 with no left shift but 4% bands. Sodium is 135, potassium 3.4, BUN 6, creatinine 0.9, glucose 123, alkaline phosphatase 158. Troponin negative. Lactate was 2.8, now it is 2.1. Other labs: PT is 15, INR 1.1. Urinalysis: [id number]-count WBCs, large leukocytes. Blood gas is essentially normal on room air. DIAGNOSTIC DATA: Chest x-ray negative for any acute processes. Head CT: Negative exam was also documented. PHYSICAL EXAMINATION: GENERAL: A middle-aged woman, not in acute distress. VITAL SIGNS: Blood pressure is 87/54, heart rate is 94, respiratory rate is 13, temperature is 97.6 degrees. She is 99% on room air. HEENT: Head is normocephalic, atraumatic. Eyes: TOBY, EOMI. She is anicteric, and pale. ENT and oropharyngeal exam shows moderate xerostomia. No exudates. No central cyanosis. NECK: Supple. No JVD or carotid bruit. No thyromegaly. Good skin turgor. CHEST: Clear when auscultated with good air entry in both lung garcia. CARDIOVASCULAR: First and second sounds heard. No gallops or rubs. Rhythm is regular. ABDOMEN: There is an ileostomy noted in the right lower quadrant. No tenderness in the abdomen. Bowel sounds are normal. No mass or organomegaly appreciated. No surrounding erythema at the ostomy site. BACK: No CVA tenderness. EXTREMITIES: The patient has diminished pulse volumes in all extremities. Rhythm is regular, symmetrical. No edema, clubbing or peripheral cyanosis. CENTRAL NERVOUS SYSTEM: No gross focal deficits. SKIN: Intact, with no breakdown, lesions or erythema. MUSCULOSKELETAL: Exam is grossly normal. ASSESSMENT: 1. Pyuria. 2. Sepsis. 3. Presyncope secondary to hypotension, question sepsis. 4. Macrocytic anemia. 5. Colon cancer. PLAN: The patient will continue IV crystalloids, but will be transferred to the ICU overnight to ensure hemodynamic stability. Blood cultures and urine cultures have been sent. The patient initially declined admission because she says she has these episodes at Dr. Mckeon's office, and this is usually remedied by IV fluids. She also reports that she is taking ciprofloxacin and Macrobid over the last 2 weeks for presumptive urinary tract infection. I informed her she still has pyuria which may hint or suggest that she may have a resistant pathogen. As such, I will cover for pseudomonas and MRSA with Maxipime and vancomycin, pending official cultures. We will consult Dr. Mckeon to see her on Saturday, at which time hopefully the cultures will be back. There is also a good possibility that the cultures may not yield anything, since she has had multiple exposures to antibiotics. An anemia workup was ordered and needs to be followed. Potassium was replaced. cc: MD Ivory Greco MD John V. Irle, MD
[2019-01-03] MEDS ORDERED: TYLENOL PO PRN (22:14)
[2019-01-03] MEDS ORDERED: ZOFRAN IV PRN (22:14)
[2019-01-03] MEDS ORDERED: VANCOMYCIN IV PER PHARMACY MISC SCH (22:14)
--- NOTE | 2019-01-03 22:20 | EKG Report ---
Test Performed on : 01/03/2019 4:22:37 PM Test Reason : syncope Blood Pressure : / mmHG Vent. Rate : 116 BPM Atrial Rate : 116 BPM P-R Int : 126 ms QRS Dur : 062 ms QT Int : 318 ms P-R-T Axes : 064 054 061 degrees QTc Int : 442 ms Sinus tachycardia. Otherwise normal ECG When compared with ECG of 13-APR-2018 10:23, Nonspecific T wave abnormality now evident in Lateral leads Unconfirmed Result
[2019-01-03] MEDS ORDERED: VANCOMYCIN 1 GM/NS 1 GM/250 ML IVPB IV ONE (22:30)
[2019-01-03 23:31] LABS: BASO# 0.03 X1000 (0.0-0.2); BASO% 0.7 % (0.0-0.8); HEMATOCRIT 24.3 % (37.0-47.0); HEMOGLOBIN 8.1 g/dL (12.0-16.0); IMM GRAN# 0.27 X1000 (0.0-0.04); IMM GRAN% 6.2 % (0.0-0.5); LYMPH# 0.46 X1000 (1.2-3.4); LYMPH% 10.5 % (20.5-51.1); MCH 35.5 PG (27-31); MCHC 33.3 g/dL (33-37); MCV 106.6 FL (81-99); MONO# 1.18 X1000 (0.11-0.59); NEUT# 2.43 X1000 (1.4-6.5); NEUT% 55.6 % (42.2-75.2); PLT 113 X1000 (130-400); RBC 2.28 XMIL (4.2-5.4); RDW 16.3 % (11.5-14.5); WBC 4.37 X1000 (4.8-10.8)
[2019-01-03 23:35] LABS: INR 1.14; PROTIME 15.5 Seconds (11.0-16.0)
[2019-01-03 23:36] LABS: PTT 31.2 Seconds (22.3-41.8)
[2019-01-04] MEDS: LOVENOX SUBQ SCH ×2 (00:01→21:30)
[2019-01-04] MEDS: NS 1,000 ML IV SCH ×4 (00:02→16:15)
[2019-01-04] MEDS ORDERED: BLISTEX MEDICATED BERRY LIP BALM TOP PRN (00:15)
[2019-01-04 00:17] LABS: AGAP 12; ALB/GLOB RATIO 1.2; ALBUMIN 3.1 g/dL (3.5-5.0); ALKALINE PHOSPHATASE 135 U/L (32-104); BUN 6 mg/dL (8-22); CALCIUM 8.1 mg/dL (8.8-10.2); CHLORIDE 104 mmol/L (98-107); CK PROFILE 19 U/L (24-173); COSMO 274; CREATININE 0.7 mg/dL (0.5-0.9); ESTIMATED GFR > 60; GLUCOSE 114 mg/dL (70-104); GOT 15 U/L (10-30); GPT 11 U/L (10-36); POTASSIUM 3.6 mmol/L (3.5-5.1); SODIUM 138 mmol/L (136-145); TCO2 22 mmol/L (25-35); TOTAL BILIRUBIN 0.16 mg/dL (0.20-1.00); TOTAL PROTEIN 5.6 g/dL (6.3-8.3)
[2019-01-04 00:30] LABS: ANISOCYTOSIS 2+; BANDS 6 % (0-1); BASO 1 % (0-1); LYMPHS 10 % (21-51); MONO 19 % (1-9); NRBC 3 % (0-0); POLYCHROM 1+; SEGS 59 % (42-75)
[2019-01-04] MEDS ORDERED: VANCOMYCIN 750 MG in NS 250 ML IV ONE (01:00)
[2019-01-04] MEDS: MAXIPIME 2 GM in NS 100 ML IV SCH ×2 (05:24→16:50)
[2019-01-04 06:22] LABS: RETIC% 4.05 % (0.8-2.1); RETIC-HE 32.9 PG (28.2-36.6)
[2019-01-04 06:26] LABS: AGAP 14; CHLORIDE 107 mmol/L (98-107); GLUCOSE 92 mg/dL (70-104); SODIUM 141 mmol/L (136-145); TCO2 20 mmol/L (25-35)
[2019-01-04 06:27] LABS: ALB/GLOB RATIO 1.1; ALBUMIN 2.9 g/dL (3.5-5.0); ALKALINE PHOSPHATASE 136 U/L (32-104); BUN 4 mg/dL (8-22); CALCIUM 7.9 mg/dL (8.8-10.2); COSMO 278; CREATININE 0.5 mg/dL (0.5-0.9); ESTIMATED GFR > 60; GOT 15 U/L (10-30); GPT 10 U/L (10-36); TOTAL BILIRUBIN 0.15 mg/dL (0.20-1.00); TOTAL PROTEIN 5.5 g/dL (6.3-8.3)
[2019-01-04 06:45] LABS: HEMATOCRIT 25.2 % (37.0-47.0); HEMOGLOBIN 8.3 g/dL (12.0-16.0); MCH 35.3 PG (27-31); MCHC 32.9 g/dL (33-37); MCV 107.2 FL (81-99); MPV 9.9 FL (7.4-10.4); PLT 115 X1000 (130-400); RBC 2.35 XMIL (4.2-5.4); RDW 16.5 % (11.5-14.5); WBC 5.34 X1000 (4.8-10.8)
[2019-01-04 06:46] LABS: BASO# 0.04 X1000 (0.0-0.2); BASO% 0.7 % (0.0-0.8); EOS# 0.03 X1000 (0.0-0.7); EOS% 0.6 % (0.0-10.0); IMM GRAN# 0.51 X1000 (0.0-0.04); IMM GRAN% 9.6 % (0.0-0.5); LYMPH# 0.42 X1000 (1.2-3.4); LYMPH% 7.9 % (20.5-51.1); MONO# 0.97 X1000 (0.11-0.59); MONO% 18.2 % (1.7-9.3); NEUT# 3.37 X1000 (1.4-6.5)
[2019-01-04 07:32] LABS: MAGNESIUM 1.6 mg/dL (1.5-2.7); PHOSPHORUS 1.9 mg/dL (2.7-4.5)
[2019-01-04 07:57] LABS: TSH 2.39 uIUmL (0.27-4.20)
[2019-01-04 08:53] LABS: ANISOCYTOSIS 1+; BANDS 18 % (0-1); LYMPHS 6 % (21-51); MONO 12 % (1-9); SEGS 62 % (42-75)
[2019-01-04] MEDS ORDERED: LOMOTIL PO PRN (10:07)
[2019-01-04] MEDS ORDERED: IMODIUM PO PRN (10:07)
[2019-01-04] MEDS ORDERED: XANAX PO PRN (10:07)
[2019-01-04] MEDS: CYMBALTA PO SCH (10:16)
--- NOTE | 2019-01-04 10:25 | PROGRESS NOTE ---
DATE: 01/04/2019 SUBJECTIVE: She is a patient of Dr. Noam Moody. This is a 53-year-old with a past medical history of colon cancer, status post colectomy and ileostomy done last year. She has been receiving chemotherapy every fourth day, I believe, since February of last year, and has been admitted once for syncope and secondary hypertension. On 01/03/2019, yesterday, she was brought in. She has slumped over on 3 separate occasions for a course of 2 hours, twice outside, and third time, friends brought her home. Her legs gave out. Parents, who are at the bedside, stated that she never lost consciousness, said she was always aware of events around her, became suddenly weak, her legs gave out requiring nearby people to assist her. She was brought to the emergency room. Blood pressure was 70/40. Blood pressure usually ranges around 60s or 70s. She got 2 L of fluid, and blood pressure came up to about 87/54 with a MAP of 66, so admitted with pyuria, sepsis, presyncope, secondary hypotension, macrocytic anemia, underlying colon cancer, undergoing chemotherapy. She feels much better, OBJECTIVE: Vital Signs: Temp is 98 degrees, pulse 96, respirations 19, blood pressure 92/50. HEENT: Pupils are equal and round. Neck: No distended neck veins. Lungs: Clear in all lung garcia. Cardiovascular: Regular rhythm and rate without murmur or S3. Abdomen: Soft, nondistended. Skin: Warm and dry. LABORATORY DATA: Reviewed from yesterday. White count 4777. This morning, it was 5334. Hematocrit 27, hemoglobin 9.3, with an MCV of 105. Sodium 135, potassium 3.4, chloride 98, bicarb 6, creatinine 0.9. This morning, electrolytes show sodium 141, potassium 3.0, chloride 107, BUN 4, creatinine 0.5. B12 was 1500. Folate greater than 40. TSH 2.39. ProTime 15, PTT was 31. Urinalysis: Too numerous to count white blood cells, negative for bacteria. IMAGING: Chest x-ray: Negative exam. No sign of infiltrates. Head CT without contrast: Negative exam. No acute pathology. PHYSICAL EXAMINATION: General: Today, she is feeling better. Vital Signs: She was afebrile, pulse is 96, respirations 19, blood pressure 92/50, but she has had blood pressures anywhere from 92 to 114/50 to 61. Lungs: Clear in all lung garcia. Cardiovascular: Regular rhythm and rate without murmur or S3. Abdomen: Soft. Skin: Warm and dry. ASSESSMENT AND PLAN: 1. Pyuria, sepsis. We have given her liberal fluids. Blood pressure is stable. She feels much better. Her antibiotics are vancomycin and ceftriaxone, gave her 1 dose, and we have continued with cefepime 2 grams intravenously every 12 hours, and vancomycin 850 mg intravenously every 12 hours. 2. Macrocytic anemia, aware. 3. Underlying colon cancer, receiving chemotherapy. I am going to supplement her potassium. She was asking about her home medications, and will check her magnesium tomorrow. She has a macrocytic anemia. Will check a CBC again in the morning. cc: Dawood Samayoa MD
[2019-01-04] MEDS: LAMICTAL PO SCH (10:27)
[2019-01-04] MEDS: POTASSIUM CHLORIDE 20 MEQ/SWI 20 MEQ/100 ML IVPB IV SCH ×2 (10:44→12:32)
[2019-01-04] MEDS: VANCOMYCIN 850 MG in NS 250 ML IV SCH (13:27)
[2019-01-04] MEDS: TAPAZOLE PO SCH (20:35)
[2019-01-04] MEDS ORDERED: ZOCOR PO SCH (21:00)
[2019-01-04] MEDS ORDERED: ZYPREXA PO SCH (21:00)
[2019-01-05] MEDS: NS 1,000 ML IV SCH ×3 (00:35→16:54)
[2019-01-05] MEDS: VANCOMYCIN 850 MG in NS 250 ML IV SCH ×2 (02:10→15:35)
[2019-01-05 05:43] LABS: BASO# 0.05 X1000 (0.0-0.2); BASO% 0.6 % (0.0-0.8); EOS# 0.04 X1000 (0.0-0.7); EOS% 0.5 % (0.0-10.0); HEMATOCRIT 22.5 % (37.0-47.0); HEMOGLOBIN 7.4 g/dL (12.0-16.0); IMM GRAN# 1.27 X1000 (0.0-0.04); LYMPH# 0.59 X1000 (1.2-3.4); MCH 35.6 PG (27-31); MCHC 32.9 g/dL (33-37); MCV 108.2 FL (81-99); MONO# 1.13 X1000 (0.11-0.59); MONO% 13.4 % (1.7-9.3); NEUT# 5.37 X1000 (1.4-6.5); NEUT% 63.5 % (42.2-75.2); PLT 121 X1000 (130-400); RBC 2.08 XMIL (4.2-5.4); RDW 17.6 % (11.5-14.5); WBC 8.45 X1000 (4.8-10.8)
[2019-01-05] MEDS: MAXIPIME 2 GM in NS 100 ML IV SCH ×2 (06:52→16:54)
[2019-01-05 07:22] LABS: BANDS 11 % (0-1); LYMPHS 13 % (21-51); MONO 9 % (1-9); NRBC 2 % (0-0); SEGS 65 % (42-75)
[2019-01-05 07:23] LABS: ANISOCYTOSIS OCCASIONAL
[2019-01-05] MEDS: LAMICTAL PO SCH (08:43)
[2019-01-05] MEDS: CYMBALTA PO SCH (08:44)
[2019-01-05] MEDS: TAPAZOLE PO SCH (08:44)
--- NOTE | 2019-01-05 09:21 | DISCHARGE SUMMARY ---
ADMISSION DATE: 01/03/2019 DISCHARGE DATE: ANTICIPATED DATE OF DISCHARGE: 01/05/2019. HOSPITAL COURSE: This is a 53-year-old patient of Dr. Ivory Mckeon. She had presyncope episodes. A 53-year-old, woman with a past medical history of colon cancer, status post colectomy with an ileostomy done last year. She has been receiving weekly chemotherapy since February of last year. Was admitted once for a syncopal spell secondary to hypotension. On 01/03/2019, she was brought in because she slumped over 3 separate occasions. Had a course for 2 hours where she just kind of slumped her head. Friends did not think she passed out. Brought her to the emergency room. Blood pressure was 70/40. Blood pressure systolic remained in the 60s and 70s. She denied any fever or chills, GI complaints, genitourinary complaints, focal neurologic complaints, cardiorespiratory complaints. No polyuria or polydipsia. No pain. No abdominal pain. No pleuritic pain. She felt better. She received 2 L of fluid in the emergency room. She says she usually gets these spells once or twice a week. She used to be hypertensive but since chemotherapy, her blood pressures just run in the 80s and 90s, by her report. Lab was unremarkable except she had some pyuria and felt she had a possibility of sepsis from a urinary tract infection. Presyncope felt due to hypotension and intravascular volume depletion so she received IV fluids and began on empiric antibiotics, and she seemed to improve. Blood cultures with no growth. Blood cultures from 01/03/2019 x 2 with no growth. She was eating. Appetite had returned. I am going to move her to the floor. She feels comfortable. I think we can talk about going home this afternoon. She is getting cefepime 2 g q.12 hours. She is on Tapazole 5 mg p.o. b.i.d., getting fluids at 125 mL an hour, Zocor 40 mg at bedtime, and she is also getting vancomycin 850 mg q.12, Zyprexa 7.5 mg at bedtime, Xanax 0.5 mg daily, and Cymbalta 60 mg daily, as well as Lamictal 200 mg q.a.m. so I will move her to the floor. She is not allergic to anything. We do not have any culture data so I may put her on Levaquin 500 mg for another 7 days. We will see how we are doing this afternoon. I suspect she will get to go home. cc: Dawood Samayoa MD
[2019-01-05 13:19] VITALS: BP 114/66
== END 2019-01-05 16:54 | disposition home or self-care (01) | DRG 871 ==
LOC: ED 16:12 → SUATTDRO 21:49 → ICU 21:49 → 3N 01-05 10:14
PROVIDERS: ATTEND Emergency Medicine
CPT/HCPCS: 70450; 71010; 71045; 80053; 80202; 81001; 82550; 82607; 82728; 82746; 82805; 82948; 83605; 83735; 84100; 84443; 84484; 85025; 85045; 85610; 85730; 87040; 93005; 94761; 96361; 96365; 99285; 99291; A9270; J0692; J0696; J1650; J3370; J3480; J7030; J7050; XXXXX

== ENCOUNTER 2019-03-30 15:51 | Inpatient (IN) ==
--- NOTE | 2019-03-30 16:04 | PROVIDER DOCUMENTATION ---
HPI-General Adult - General Chief Complaint: B/P Problems Stated Complaint: DR CAM SENT FOR FLUIDS Time Seen by Provider: 03/30/19 16:04 Source: patient Allergies/Adverse Reactions: Patient Allergies Allergy/AdvReac Type Severity Reaction Status Date / Time No Known Allergies Allergy Verified 01/03/19 22:24 Home Medications: Home Medication List Medication Instructions Recorded Confirmed Last Taken Type Simvastatin 40 mg PO HS 10/23/12 03/30/19 12/02/18 09:00 History Duloxetine [Cymbalta] 60 mg PO DAILY 03/04/18 03/30/19 12/02/18 09:00 History Olanzapine [Zyprexa] 7.5 mg PO QHS 04/13/18 03/30/19 12/02/18 09:00 History Diphenoxylate/Atropine [Lomotil] 1 each PO 4XDAY PRN PRN #60 tablet 04/15/18 03/30/19 06/12/18 04:30 Rx Alprazolam 0.5 mg PO PRN PRN 06/02/18 03/30/19 12/02/18 09:00 History Loperamide [Imodium] 2 mg PO PRN PRN 06/02/18 03/30/19 11/30/18 History Lamotrigine 100 mg PO DIRECTED 01/03/19 03/30/19 Unknown History Methimazole [Tapazole] 1 tab PO BID 01/03/19 03/30/19 Unknown History Acetaminophen [Tylenol] 650 mg PO Q6H PRN PRN tab 01/05/19 03/30/19 Unknown Rx - History of Present Illness -Gen Adult Nature of Presenting Problems: This is a 53yo female who presents with CC of low blood pressure. The patient was sent in by her family doctor due to hypotension. The has dx of metastatic colon cancer to her liver. The patient BP at home was systolic in the 70s. The patient does report some dizziness but denies any chest or abdominal pain. The patient denies fevers or shortness of breath. The patient denies bleeding or swelling. The patient denies dysuria. Location of Pain/Injury: reports: none Pain Radiation: reports: no radiation Onset/Duration: reports: 2 days ago Associated Symptoms: reports: dizziness Review of Systems - Adult - REVIEW OF SYSTEMS - ADULT Constitutional: denies: fever Eyes: reports: no symptoms reported. denies: blurred vision Ears, Nose, Mouth & Throat: reports: no symptoms reported Cardiovascular: reports: no symptoms reported. denies: chest pain Respiratory: reports: no symptoms reported. denies: shortness of breath Gastrointestinal: reports: no symptoms reported. denies: abdominal pain Genitourinary: reports: no symptoms reported. denies: dysuria Musculoskeletal: reports: no symptoms reported Integumentary: reports: no symptoms reported Neurological: reports: no symptoms reported. denies: headache/migraines Psychiatric: reports: no symptoms reported Endocrine: reports: no symptoms reported Hematologic/Lymphatic: reports: no symptoms reported, other (no bleeding) Allergic/Immunologic: reports: no symptoms reported, other (no swelling) Past History - Adult - PAST MEDICAL HISTORY-ADULT Review of Records: reports: Old Records Reviewed Cardiovascular: reports: denies history Respiratory: reports: denies history Gastrointestinal: reports: cancer (colon) Genitourinary: reports: denies history Musculoskeletal: reports: denies history Neurological: reports: denies history Psychiatric: reports: denies history Endocrine/Immune: reports: denies history Other Conditions: reports: denies history - PRIOR SURGERIES/PROCEDURES Surgical/Procedure History: reports: other (colon cancer surgery with ostomy) - FAMILY HISTORY Family History: other (denies) - SOCIAL HISTORY Smoking: denies Substance Use: none/never Alcohol Use Frequency: never Physical Exam-General - CONSTITUTIONAL General Appearance: appears well, alert, no apparent distress - EYES Eyes: negative: conjuctival exudate, photophobia, scleral icterus - HEAD, EARS, NOSE, MOUTH & THROAT HENMT: normocephalic/atraumatic, moist mucous membranes - RESPIRATORY Respiratory: no respiratory distress, crackles (mild RLL rales, overall normal respiratory sounds) - CARDIOVASCULAR Cardiovascular: regular rate, rhythm, no edema - GASTROINTESTINAL (ABDOMEN) Abdominal Exam: non tender, soft, other (ostomy bag noted in the RLQ, minimal erythema or pain around the ostomy site) - SKIN Integumentary: normal color - NEUROLOGIC Neurologic: grossly normal - PSYCHIATRIC Psych/Mental Status: normal mood/affect, normal thought content, normal thought process Progress - PLAN OF CARE/RESULTS Progress/Plan/Lab Results: Vital Signs - 8 hr 03/30/19 15:53 Temperature 98.4 F Pulse Rate 104 H Respiratory Rate 18 Blood Pressure 89/59 O2 Sat by Pulse Oximetry 97 Result Diagrams: 03/30/19 16:30 03/30/19 16:30 - REASSESSMENT Reassessment #1 Status: unchanged (Patient resting comfortably in bed. BP still noted in the 70s after IVF bolus, however HR has improved. Given persisent hypotension as well as JUS and hyperkalemia in the setting of metastatic colon cancer will plan for admission.) Reassessment #2 Status: other (Discussed case with Dr. Mckeon as well as the hospitalist team. The hospitalist team has accepted the patient for admission.) Departure - Departure Date of Disposition Decision: 03/30/19 Time of Disposition Decision: 17:41 DIAGNOSIS: Acute kidney injury, Hyponatremia Hypotension Qualifiers: Hypotension type: other hypotension type Qualified Code(s): I95.89 - Other hypotension Colon cancer Qualifiers: Colon location: unspecified part of colon Qualified Code(s): C18.9 - Malignant neoplasm of colon, unspecified Disposition: ADMITTED INPATIENT 09 Certified Medical Emergency: Emergent Condition: Serious Referrals and Follow-Ups: Noam Moody MD [Primary Care Provider] - - Critical Care Note This patient required my direct & personal management of CC.: No Attestation - Physician/ VIRGEN Attestation Patient care was provided by Advanced Practice Provider:: No The physician spent face to face time with patient:: Yes Advanced Practice Provider documentation review:: Supervising physician onsite and consulted in the evaluation and care of this patient. The physician did have a face to face encounter with the patient.
[2019-03-30] MEDS ORDERED: NS 500 ML IV ONE (16:17)
[2019-03-30 16:47] LABS: BASO# 0.01 X1000 (0.0-0.2); BASO% 0.2 % (0.0-0.8); EOS% 1.6 % (0.0-10.0); HEMATOCRIT 35.5 % (37.0-47.0); HEMOGLOBIN 11.6 g/dL (12.0-16.0); IMM GRAN# 0.04 X1000 (0.0-0.04); IMM GRAN% 0.7 % (0.0-0.5); LYMPH# 0.34 X1000 (1.2-3.4); LYMPH% 5.5 % (20.5-51.1); MCH 32.6 PG (27-31); MCHC 32.7 g/dL (33-37); MCV 99.7 FL (81-99); MONO# 0.56 X1000 (0.11-0.59); MONO% 9.1 % (1.7-9.3); MPV 8.6 FL (7.4-10.4); NEUT# 5.09 X1000 (1.4-6.5); NEUT% 82.9 % (42.2-75.2); PLT 327 X1000 (130-400); RBC 3.56 XMIL (4.2-5.4); RDW 13.2 % (11.5-14.5); WBC 6.14 X1000 (4.8-10.8)
[2019-03-30 17:19] LABS: ALB/GLOB RATIO 1.1; ALBUMIN 4.1 g/dL (3.5-5.0); CALCIUM 9.5 mg/dL (8.8-10.2); CREATININE 2.9 mg/dL (0.5-0.9); MAGNESIUM 2.4 mg/dL (1.5-2.7); POTASSIUM 5.7 mmol/L (3.5-5.1); TOTAL BILIRUBIN 0.22 mg/dL (0.20-1.00); TOTAL PROTEIN 7.8 g/dL (6.3-8.3)
--- NOTE | 2019-03-30 17:43 | EKG Report ---
Test Performed on : 03/30/2019 5:02:47 PM Test Reason : Hypertension Blood Pressure : / mmHG Vent. Rate : 091 BPM Atrial Rate : 091 BPM P-R Int : 152 ms QRS Dur : 070 ms QT Int : 354 ms P-R-T Axes : 048 034 037 degrees QTc Int : 435 ms Normal sinus rhythm. Normal ECG When compared with ECG of 03-JAN-2019 16:22, (Unconfirmed) Nonspecific T wave abnormality no longer evident in Lateral leads Unconfirmed Result
--- NOTE | 2019-03-30 18:28 | HISTORY AND PHYSICAL ---
HISTORY OF PRESENT ILLNESS: This is a 53-year-old patient of Dr. Noam Moody and followed by Dr. Ivory Mckeon, and she presented with feeling dizzy and weak and low blood pressure. She has a past medical history of colon cancer status post colectomy with ileostomy done last year. She has been receiving chemotherapy, which started February of last year, and I think she said they stopped about a month ago. She was admitted back in December of this year for presyncope and feeling weak, but she has not had any recent chemotherapy. She denies any bleeding, hematemesis, hematochezia, chest pain, palpitations. She says she has been eating and drinking, but today is Saturday, and she said that Saturday is when she started feeling kind of bad and weak, and they have stopped her blood pressure medicines. She does not remember what she is taking at this time. She denies fever or chills. She denies cough, sputum production, gross hematuria or dysuria. No focal neurologic changes. She has not had any sense of adenopathy or neck discomfort. ALLERGIES: No known drug allergies. PAST SURGICAL HISTORY: Had an ileostomy, hysterectomy, has had 2 left hip surgeries and a left knee surgery. SOCIAL HISTORY: She lives with her mother and father. Negative for alcohol or tobacco. Never had illicit drugs. FAMILY HISTORY: The patient is adopted. Really does not know much about her family. PAST MEDICAL HISTORY: Hypertension, hyperlipidemia, recurrent UTIs. PHYSICAL EXAMINATION: VITAL SIGNS: Temperature 97.7 degrees, pulse 104, respirations 13, blood pressure 78/43, O2 saturation is 93%, weight 150 pounds, height 5 feet 6 inches. HEENT: Pupils are equal and round. Conjunctivae are pink. Sclerae are clear. No cervical adenopathy. No thyromegaly. NECK: Supple. No supraclavicular adenopathy. No axillary or femoral adenopathy. LUNGS: Clear in all lung garcia. CARDIOVASCULAR EXAM: Regular rhythm and rate without murmur or S3. ABDOMEN: Soft. SKIN: Warm and dry. Oral and nasal mucosa unremarkable. LABORATORY DATA: White count 6140, hematocrit 35, hemoglobin 11, platelet count 327,000. Sodium 135, potassium 5.7, chloride 104, BUN 68, creatinine 2.9. AST was 9, ALT is 7. Troponin less than 0.01. Alkaline phosphatase was 155, albumin 4.1, calcium 9.5. ASSESSMENT AND PLAN: 1. Hypotension and dizziness and looks like she has had trouble with this before. I do not see any sign of infection. Her white count is not elevated. She has been eating and drinking. Looking at her medications in the past, she takes alprazolam and Cymbalta, lamotrigine 100 mg I think as needed, takes Imodium as needed, Zyprexa 7.5 mg at bedtime and simvastatin 40 mg at bedtime. Renal function/creatinine is a little high. She looks like she is dry. I am going to give her some normal saline, and we will follow her electrolytes. Note that we need to check a magnesium. We will check a T4, TSH, B12 and folate. 2. Acute kidney injury. Her creatinine is 2.9 right now, and it was 0.5 back in December, so I think this is going to be prerenal, but consider possibilities of acute tubular necrosis. She shows no sign of significant acidosis. Her bicarb was 18, BUN was 68. Note, she has a very mild anemia, hematocrit 35, hemoglobin 11.6 and MCV is normal. So, we will give her some normal saline. Recheck her lab in the morning. I do not see any evidence of infection. We will not start any antibiotics at this time. cc: Dawood Samayoa MD MTDD
[2019-03-30] MEDS ORDERED: PATIENT'S OWN MED PO PRN ×3 (18:51)
[2019-03-30] MEDS ORDERED: ACETAMINOPHEN 650 MG PO PRN (18:51)
[2019-03-30] MEDS ORDERED: ZOFRAN IV PRN (18:51)
[2019-03-30] MEDS ORDERED: PATIENT'S OWN MED PO SCH (18:51)
[2019-03-30] MEDS ORDERED: TYLENOL PO PRN (18:51)
--- NOTE | 2019-03-30 19:35 | Diag Imaging Result Doc PS360 ---
CHEST-PORTABLE - 03/30/2019 INDICATION: h/o colon cancer COMPARISON: 01/03/2019 FINDINGS: Stable right chest port in good position. Lung volumes are lower. There is some trace linear atelectasis in the lingula. No infiltrates. No pulmonary masses. Heart size is normal. There is an old, displaced right distal clavicle fracture with significant new bone formation but no significant bony bridging. IMPRESSION: Healing right distal clavicle fracture. Electronically signed by Chele Wright 03/30/2019 7:32 PM
[2019-03-30] MEDS ORDERED: LOMOTIL PO PRN (19:55)
[2019-03-30] MEDS ORDERED: XANAX PO PRN (20:15)
[2019-03-30] MEDS: ZYPREXA PO SCH (20:43)
[2019-03-30] MEDS: NS 1,000 ML IV SCH (20:44)
[2019-03-30] MEDS: LAMICTAL PO SCH (20:44)
[2019-03-30] MEDS: TAPAZOLE PO SCH (20:44)
[2019-03-30] MEDS: ZOCOR PO SCH (20:44)
[2019-03-30] MEDS ORDERED: FLU VACCINE IM ONE (23:30)
[2019-03-31 00:09] LABS: URINE SOURCE CLEAN CATCH
[2019-03-31] MEDS ORDERED: NS 1,000 ML IV ONE (00:41)
[2019-03-31 01:10] LABS: BILIRUBIN URINE NEGATIVE (NEGATIVE); BLOOD URINE SMALL (NEGATIVE); COLOR YELLOW; GLUCOSE URINE NEGATIVE (NEGATIVE); KETONE URINE NEGATIVE (NEGATIVE); LEUKOCYTES URINE LARGE (NEGATIVE); NITRITE URINE NEGATIVE (NEGATIVE); PH URINE 5.5; PROTEIN URINE 30 mg/dL (NEGATIVE); SP GRAVITY URINE 1.016; TURBIDITY URINE CLEAR (CLEAR); UR EPITHELIAL CELLS <10 /HPF (<10); URINE BACTERIA NEGATIVE /HPF; URINE RBC <10 /HPF (<10); URINE WBC 20-40 /HPF (<10); UROBILINOGEN URINE NORMAL (NORMAL)
[2019-03-31] MEDS: NS 1,000 ML IV SCH ×3 (02:06→15:51)
[2019-03-31] MEDS ORDERED: LEVOPHED 8 MG in D5 1/2 NS 250 ML IV SCH (04:45)
[2019-03-31 05:31] LABS: INR 1.09; PROTIME 14.3 Seconds (11.0-16.0)
[2019-03-31] MEDS ORDERED: CARMEX LIP BALM TOP PRN (05:46)
[2019-03-31 06:09] LABS: BASO# 0.01 X1000 (0.0-0.2); BASO% 0.2 % (0.0-0.8); EOS# 0.21 X1000 (0.0-0.7); EOS% 4.5 % (0.0-10.0); HEMATOCRIT 29.2 % (37.0-47.0); HEMOGLOBIN 9.2 g/dL (12.0-16.0); IMM GRAN# 0.03 X1000 (0.0-0.04); IMM GRAN% 0.6 % (0.0-0.5); LYMPH# 0.44 X1000 (1.2-3.4); LYMPH% 9.3 % (20.5-51.1); MCH 32.2 PG (27-31); MCHC 31.5 g/dL (33-37); MCV 102.1 FL (81-99); MONO# 0.54 X1000 (0.11-0.59); MONO% 11.5 % (1.7-9.3); MPV 8.7 FL (7.4-10.4); NEUT# 3.48 X1000 (1.4-6.5); NEUT% 73.9 % (42.2-75.2); PLT 256 X1000 (130-400); RBC 2.86 XMIL (4.2-5.4); RDW 13.2 % (11.5-14.5); WBC 4.71 X1000 (4.8-10.8)
[2019-03-31 06:26] LABS: AGAP 9; ALB/GLOB RATIO 1.2; ALBUMIN 3.2 g/dL (3.5-5.0); ALKALINE PHOSPHATASE 132 U/L (32-104); BUN 60 mg/dL (8-22); CALCIUM 8.1 mg/dL (8.8-10.2); CHLORIDE 113 mmol/L (98-107); COSMO 292; CREATININE 2.1 mg/dL (0.5-0.9); ESTIMATED GFR 25; GLUCOSE 95 mg/dL (70-104); GOT 7 U/L (10-30); GPT 5 U/L (10-36); MAGNESIUM 2.2 mg/dL (1.5-2.7); POTASSIUM 5.5 mmol/L (3.5-5.1); SODIUM 138 mmol/L (136-145); TCO2 16 mmol/L (25-35); TOTAL BILIRUBIN < 0.15 mg/dL (0.20-1.00); TOTAL PROTEIN 5.8 g/dL (6.3-8.3)
[2019-03-31] MEDS: LAMICTAL PO SCH ×2 (09:00→20:41)
[2019-03-31] MEDS: CYMBALTA PO SCH (09:01)
[2019-03-31] MEDS: TAPAZOLE PO SCH ×2 (09:39→20:41)
--- NOTE | 2019-03-31 09:50 | Diag Imaging Result Doc PS360 ---
EXAM: US RENAL 2 (RETROPER) COMPLETE 03/31/2019 HISTORY: JUS TECHNIQUE: Renal ultrasound COMMENT: There is a 6 mm calculus in the left lower mid central renal echocomplex. There is no evidence of hydronephrosis. There is a 5 mm calculus in the lower central renal echocomplex on the right. No masses are demonstrated. The kidneys are normal in echogenicity. The urinary bladder is unremarkable. IMPRESSION: Bilateral nephrolithiasis. Electronically signed by Cristhian Suarez 03/31/2019 9:47 AM
[2019-03-31] MEDS ORDERED: ROCEPHIN 1 GM in NS 50 ML IV SCH (12:30)
--- NOTE | 2019-03-31 12:43 | PROGRESS NOTE ---
DATE: 03/31/2019 SUBJECTIVE: Patient has no major complaints. OBJECTIVE: Blood pressure 108/68, heart rate 72, respiratory rate 19, temperature 97.8 degrees, 97% on room air.Cardiovascular: Regular rate and rhythm. Pulmonary: Bilateral breath sounds. Clear to auscultation. GI: Soft, nontender, nondistended. Ostomy looks intact. White count 4, hemoglobin and hematocrit 9 and 29, MCV of 102, platelets of 256. Potassium is still high at 5.5. BUN and creatinine of 60 and 2.1, which is down from 68 and 2.9. TSH is 10.5. May have a UTI, but culture is pending. PROBLEM LIST: 1. Transient hypotension, unclear etiology. She does not give any history of dehydration or increased ostomy output or any sepsis. It is not clear if she has an infection, but she does have a UTI. I may go ahead and start Rocephin until we can get her culture back. 2. Acute kidney injury which is presumably prerenal azotemia or ATN. We will check urine electrolytes. Her renal ultrasound was unremarkable. She does have some nephrolithiasis, but I think that was there previously and it is in the renal cortex and not in her ureters. She does not describe any dysuria. 3. Metastatic colon cancer. She is followed by Dr. Mckeon. She is requesting that Dr. Sequeira check on her as well, although I do not think there is any surgical issues at this time, but we will. 4. Anemia. She has a macrocytic anemia. We will check B12, folate levels. Will probably check all her labs and see if that is contributing. We will get a Hemoccult, although with her ostomy, not sure if that is going to tell us very much but we will continue to follow closely. Her ostomy output apparently is normal and not increased. She has a very flat affect, which looks like she may have complicated depression. She is on a slew of medications including antipsychotic. She may have bipolar on looking at it because she is on Lamictal, Zyprexa, and Cymbalta, although it does not appear to be an issue, but I am not sure if this is related to her other medical issues. We will continue to follow. DISPOSITION: I anticipate maybe we will discharge her tomorrow. Today we are going to transfer her to the floor and work on ambulation. Continue IV fluids. Check her electrolytes tomorrow and monitor. cc: Francisco Javier Rojo MD
[2019-03-31] MEDS: LOKELMA POWDER PACKET PO SCH (13:30)
[2019-03-31 16:11] LABS: UR CREAT RANDOM 33.9 mg/dL (11-20); UR PROT RANDOM 14.4 mg/dL
--- NOTE | 2019-03-31 17:02 | HEMO/ONC CONSULTATION ---
DATE: 03/31/2019 CONSULTATION REQUESTED BY: Hospitalist Service. REASON FOR CONSULTATION: The consultation is for colorectal cancer, patient known. HISTORY OF PRESENT ILLNESS: Ms. Goodman is a 53-year-old female, who is known to us, as we have previously treated her for a lower colorectal cancer. Her last treatment was on 12/24/2018. Throughout treatment, she did require frequent IV hydration. However, she has recently been contacting our office needing additional IV hydration, which is not typical being 3 months out from her last chemotherapy treatment. We have advised the patient to follow up with her primary care physician. Somehow she wound up seeing, I believe, her general surgeon who contacted us late yesterday evening. We recommended that as the patient was severely hypotensive and feeling weak that she should report to the emergency department for further evaluation. The patient was subsequently admitted to the hospital and is now in the ICU for close monitoring due to her hypotension. The patient reports to me that she has been feeling unwell maybe for the past week or so. She is feeling better now. She denies any increased ostomy output and reports that she has to change her bag maybe twice per day. She claims that she has been hydrating and eating relatively normally prior to starting to feel ill. Of note, we had previously evaluated the patient for adrenal insufficiency, and she is found to require hydrocortisone daily. Per her report, she has not been taking her hydrocortisone regularly. She is due for restaging scans here towards the end of March to beginning of April. She is feeling better today. PAST SURGICAL HISTORY: 1. Hip surgery back in 2017. 2. Left hip replacement in 2011. 3. Knee surgery in 1995 and partial hysterectomy. 4. Laparoscopic loop ileostomy placement. PAST MEDICAL HISTORY: 1. Hypertension. 2. Bipolar disease. 3. Anxiety. 4. Depression. 5. Locally advanced colorectal cancer, status post treatment with last treatment being in December 2018. She had good response to therapy. SOCIAL HISTORY: Patient currently lives with her parents. She denies any alcohol, illicit drug or tobacco use. She works full-time in a plant. FAMILY HISTORY: Her biological mother is . The patient is adopted and does not know any further family history. REVIEW OF SYSTEMS: A 12-point review of systems has been completed and is negative except for what is expressed in the HPI. PHYSICAL EXAMINATION: Vital Signs: Temperature 97.8, heart rate 101, respirations 16, blood pressure 114/71, and O2 saturation 94% on room air. General: This is a female lying in her hospital bed. Her mother is at bedside. She is in no acute distress at this time. HEENT: Head is normocephalic, atraumatic. Eyes: Pupils equal, round, reactive. Ears, nose, throat, neck, and mouth: Oral mucosa is normal. Cardiovascular: S1 and S2 heard. Tachycardia, but regular rhythm. Respiratory: Chest is clear. Gastrointestinal: Abdomen is soft. Ileostomy in place with no signs of any sort of issues at this time. Musculoskeletal: No bony abnormalities. Extremities: No edema. Skin: No rashes. Neurologic: The patient is alert and oriented. LABS AND STUDIES: White blood cells are 4.71 today, hemoglobin 9.2, platelet count 256,000. Sodium 138, potassium 5.5, chloride 113, CO2 of 16, BUN 60, creatinine 2.1, glucose 95. She has large leukocytes in her urine with a small amount of blood. ASSESSMENT AND PLAN: 1. T3N1B rectal cancer, YPT3N0, status post neoadjuvant chemotherapy and also adjuvant FOLFOX chemotherapy. She completed 10 cycles of adjuvant chemotherapy with her last dose being on 12/24/2018. She is due for restaging scans here in the next 1 to 2 weeks. Our plan is to complete those restaging scans and have her follow up with us as an outpatient. 2. Liver lesion on CT. Somewhat suspicious for liver metastasis, but this has not been confirmed. We will follow up on her restaging scans as per above. 3. Hypotension with dizziness, recurrent. Improving with intravenous fluids. Continue current management per the primary team. Recommend close monitoring with primary care physician once the patient is released from the hospital. We do not believe that the patient's current issues are likely to be related to her cancer. We will continue to monitor her cancer with restaging scans as mentioned previously. 4. Adrenal insufficiency. The patient has been found to be adrenally insufficient previously. Per her report, she has not been taking her hydrocortisone regularly. Recommend that she restart hydrocortisone. 5. Acute renal failure. Improving. Continue intravenous hydration. Workup as per Dr. Rojo and his team. 6. Urinary tract infection. Continue empiric antibiotics, and follow up on final culture when it becomes available. Thank you for consulting us. We will continue following and adjust our treatment plan per the patient's hospital course. Dictated by BELINDA Vincent for Ivory Mckeon MD cc: Ivory Mckeon MD I have seen and examined the patient and the above note reflects my H&P, assessment and plan. Ivory Mckeon MD [facility]
--- NOTE | 2019-03-31 17:54 | GENERAL SURGERY CONSULTATION ---
DATE: 03/31/2019 REASON FOR CONSULTATION: Hypotension with history of rectal cancer. CHIEF COMPLAINT: Hypotension. HISTORY OF PRESENT ILLNESS: This is a 53-year-old female, known to me. She was seen in my office yesterday. She has had previous operation for rectal cancer and ongoing adjuvant therapy. She has a persistent high ileostomy output and requires outpatient infusions, but we were unable arrange this yesterday, and as such, we referred her to the ER, where workup found her to be hypotensive. She had a urinalysis positive and consistent with a urinary tract infection. She had some electrolyte derangement, acute kidney injury. She was hydrated overnight with improvement in her renal function and hypotension. I have been consulted now. She has no abdominal complaints. MEDICAL HISTORY: Reviewed, includes metastatic rectal cancer, hypertension, bipolar, anxiety, depression. SURGICAL HISTORY: She has had a low anterior resection. She had diverting loop ileostomy, as well as a mucous fistula. She has had a port placement, back surgery, hip replacement, knee surgery, partial hysterectomy. SOCIAL HISTORY: Lives with parents. No current tobacco, alcohol, or drugs. She does work. FAMILY HISTORY: Reviewed and noncontributory. REVIEW OF SYSTEMS: A 10 point review of systems negative, other than what is mentioned in the HPI. OBJECTIVE: Vital Signs: She is afebrile currently, pulse 96, blood pressure has been 110s to 120s, oxygen saturation high 90s. General: She is alert. Cardiovascular: Normal rate. Pulmonary: No increased work of breathing. Abdomen: Soft, nontender. Ostomy is in place with stool in the bag. Integument: Warm, dry. DIAGNOSTIC STUDIES: White count 4, hematocrit 29. Creatinine is down to 2.1 and was 2.9 yesterday, potassium 5.5 down from 5.7. Troponins are negative. LFTs normal with the exception of mild elevation in her alkaline phosphatase. Lactate was normal on admission. Urinalysis positive for leukocytes. I have reviewed her renal ultrasound that shows nephrolithiasis. ASSESSMENT AND PLAN: A 53-year-old female with rectal cancer, dehydration related to ileostomy output and urinary tract infections. Her hypertension seems resolved with her hydration. We will monitor urine output. Otherwise, she can have a diet. I do not plan any surgical intervention. cc: Jessica Sequeira MD
[2019-03-31] MEDS: ZYPREXA PO SCH (20:40)
[2019-03-31] MEDS: ZOCOR PO SCH (20:41)
[2019-04-01] MEDS: NS 1,000 ML IV SCH ×2 (01:01→03:14)
[2019-04-01] MEDS ORDERED: CORTROSYN IV ONE (06:00)
[2019-04-01 06:37] LABS: BASO# 0.01 X1000 (0.0-0.2); BASO% 0.2 % (0.0-0.8); EOS# 0.17 X1000 (0.0-0.7); HEMOGLOBIN 9.6 g/dL (12.0-16.0); IMM GRAN# 0.03 X1000 (0.0-0.04); IMM GRAN% 0.7 % (0.0-0.5); LYMPH# 0.36 X1000 (1.2-3.4); LYMPH% 8.5 % (20.5-51.1); MCH 32.7 PG (27-31); MONO# 0.37 X1000 (0.11-0.59); MONO% 8.7 % (1.7-9.3); MPV 8.6 FL (7.4-10.4); NEUT# 3.29 X1000 (1.4-6.5); NEUT% 77.9 % (42.2-75.2); PLT 265 X1000 (130-400); RBC 2.94 XMIL (4.2-5.4); RDW 12.9 % (11.5-14.5); WBC 4.23 X1000 (4.8-10.8)
[2019-04-01 07:16] LABS: CALCIUM 8.9 mg/dL (8.8-10.2); MAGNESIUM 1.7 mg/dL (1.5-2.7); POTASSIUM 5.1 mmol/L (3.5-5.1)
[2019-04-01] MEDS: LAMICTAL PO SCH (09:26)
[2019-04-01] MEDS: TAPAZOLE PO SCH (09:27)
[2019-04-01] MEDS: CYMBALTA PO SCH (09:27)
[2019-04-01 11:16] VITALS: BP 121/68
[2019-04-01] MEDS: LOKELMA POWDER PACKET PO SCH (11:58)
--- NOTE | 2019-04-01 13:36 | DISCHARGE SUMMARY ---
ADMISSION DATE: 03/30/2019 DISCHARGE DATE: 04/01/2019 DISCHARGE DIAGNOSES: 1. Dehydration, acute kidney injury. 2. Possible adrenal insufficiency. 3. Anemia. 4. Metastatic colon cancer with hepatic metastases. PROCEDURES: None. CONSULTATIONS: Dr. Mckeon of Oncology, Dr. Sequeira, General Surgery. HOSPITAL COURSE: Briefly, patient came in with low blood pressure. She has not been eating and drinking very well. She does have an ileostomy, which is being monitored and plan for reversal later this year. She is on numerous medications for possibly bipolar or depression. She came in with acute kidney injury with creatinine of 2.9 with baseline normal functioning. Her renal ultrasound was obtained and was normal except for some small calculi, but they were in the kidneys and there was no evidence of hydronephrosis or hydroureter, and I think they have been seen previously on CT. She was hydrated and her renal function improved to 2.1 on the 15th and was normal 1.0 with a BUN of 27 on the 16th and her potassium had come down. She was a bit hypothyroid. I guess she has a history of hyperthyroid because she is on methimazole. Her TSH is 10.5 and her free T4 is 0.7. She is on methimazole twice a day, I think we may cut it back down to once a day now that she is hypothyroid. Dr. Moody will have to manage that. She will need repeat TFTs in the next 2 to 4 weeks at his discretion or if Endocrinology is following, they will need to adjust. Reportedly, she had adrenal insufficiency according to Dr. Mckeon's records. She is supposed to be on hydrocortisone, but she is not taking it. Her Cortrosyn stem test here was negative for adrenal insufficiency because I did not have that information when I had ordered it, but her baseline was 5, which is low but she responded 22 and 26 at the 30 and 60 minute alvarez, which is not consistent with adrenal insufficiency. That being said, I will go ahead and give her low-dose hydrocortisone. We will monitor her blood pressure because she has hypotension. She has been hyperkalemic. She is not on any antihypertensive so I am not quite sure there but in any case, #1, she needs repeat TFTs in 2 to 4 weeks and then monitor for cortisol response hypertensive reaction. She had a questionable UTI, but her culture was negative and she had no symptoms so I did not discharge her on antibiotics. DISCHARGE MEDICATIONS: Zyprexa 7.5 at bedtime, Xanax 0.5 p.r.n., Cymbalta 60 daily, Imodium as needed, Lamictal 200 in the morning and 150 at night, simvastatin 40, hydrocortisone 10 daily which is new, Lomotil p.r.n., Tapazole was decreased to 5 daily. She had a prescription for Tylenol, but I am not sure she needs that. She will follow up with Dr. cMkeon and Dr. Moody in 1 to 2 weeks. 32 minute discharge. cc: Francisco Javier Rojo MD
== END 2019-04-01 13:15 | disposition home or self-care (01) | DRG 683 ==
LOC: ED 15:51 → SUATTDRO 18:44 → 1N 18:44 → ICU 03-31 05:27 → 3N 03-31 17:51
PROVIDERS: ATTEND Internal Medicine

== ENCOUNTER 2019-07-09 05:21 | Inpatient (IN) ==
[2019-07-01 10:57] LABS: BASO# 0.01 X1000 (0.0-0.2); BASO% 0.2 % (0.0-0.8); EOS# 0.13 X1000 (0.0-0.7); EOS% 2.1 % (0.0-10.0); HEMATOCRIT 39.6 % (37.0-47.0); HEMOGLOBIN 12.8 g/dL (12.0-16.0); LYMPH# 0.51 X1000 (1.2-3.4); LYMPH% 8.2 % (20.5-51.1); MCH 31.4 PG (27-31); MCHC 32.3 g/dL (33-37); MCV 97.3 FL (81-99); MONO# 0.32 X1000 (0.11-0.59); MONO% 5.1 % (1.7-9.3); MPV 8.5 FL (7.4-10.4); NEUT# 5.28 X1000 (1.4-6.5); NEUT% 84.4 % (42.2-75.2); PLT 296 X1000 (130-400); RBC 4.07 XMIL (4.2-5.4); RDW 12.9 % (11.5-14.5); WBC 6.25 X1000 (4.8-10.8)
[2019-07-09] MEDS ORDERED: KEFZOL 1 GM/D5W 1 GM/50 ML IVPB ONE (05:49)
[2019-07-09] MEDS ORDERED: PEPCID ONE (05:49)
[2019-07-09] MEDS ORDERED: LR 1,000 ML ONE ×2 (05:49→10:05)
[2019-07-09] MEDS ORDERED: REGLAN ONE (05:49)
[2019-07-09] MEDS ORDERED: VERSED ONE (05:58)
[2019-07-09] MEDS ORDERED: DIPRIVAN 1% ONE (05:59)
[2019-07-09] MEDS ORDERED: DILAUDID ONE (05:59)
[2019-07-09] MEDS ORDERED: NEO-SYNEPHRINE ONE (06:10)
[2019-07-09] MEDS ORDERED: QUELICIN (DOSE) ONE (06:10)
[2019-07-09] MEDS ORDERED: STERILE WATER INJ. ONE (06:10)
[2019-07-09] MEDS ORDERED: XYLOCAINE-MPF 2% ONE (06:10)
[2019-07-09] MEDS ORDERED: NORCURON ONE (06:10)
[2019-07-09] MEDS ORDERED: DECADRON ONE (07:49)
[2019-07-09] MEDS ORDERED: ZOFRAN ONE (07:49)
[2019-07-09] MEDS ORDERED: NEOSTIGMINE ONE (08:41)
[2019-07-09] MEDS ORDERED: ROBINUL ONE (08:43)
[2019-07-09 08:45] LABS: URINE SOURCE CATH
[2019-07-09 08:49] LABS: BILIRUBIN URINE NEGATIVE (NEGATIVE); BLOOD URINE NEGATIVE (NEGATIVE); COLOR ORANGE; GLUCOSE URINE NEGATIVE (NEGATIVE); KETONE URINE TRACE mg/dL (NEGATIVE); LEUKOCYTES URINE TRACE (NEGATIVE); NITRITE URINE NEGATIVE (NEGATIVE); PROTEIN URINE 100 mg/dL (NEGATIVE); TURBIDITY URINE CLEAR (CLEAR); UROBILINOGEN URINE 2 mg/dL (NORMAL)
[2019-07-09 09:17] LABS: UR EPITHELIAL CELLS <10 /HPF (<10); URINE BACTERIA NEGATIVE /HPF; URINE RBC TNTC /HPF (<10); URINE WBC <10 /HPF (<10)
[2019-07-09] MEDS: DILAUDID ONE ×2 (10:05→10:08)
[2019-07-09] MEDS ORDERED: MAG-OX PO ONE (10:58)
[2019-07-09] MEDS: DILAUDID IV PRN (13:00)
[2019-07-09] MEDS: LR 1,000 ML IV SCH (13:02)
[2019-07-09] MEDS: ULTRAM PO PRN ×2 (16:31→22:28)
[2019-07-09] MEDS: OFIRMEV 1000 MG/ISOTONIC SOLN 1,000 MG/100 ML BOTTLE IV SCH ×2 (16:31→22:29)
[2019-07-09] MEDS: ZOCOR PO SCH (20:34)
[2019-07-09] MEDS: PERIDEX MT SCH (20:34)
[2019-07-09] MEDS: NEURONTIN PO SCH (20:34)
[2019-07-09] MEDS: LAMICTAL PO SCH (20:35)
--- NOTE | 2019-07-09 22:28 | OPERATIVE NOTE ---
PROCEDURE DATE: 07/09/2019 PREOPERATIVE DIAGNOSIS: Rectal cancer. POSTOPERATIVE DIAGNOSIS: Rectal cancer. PROCEDURE PERFORMED: 1. Exploratory laparotomy with lysis of adhesions. 2. Takedown of diverting loop ileostomy. 3. Takedown of colonic mucous fistula. 4. Creation of end-colostomy. ESTIMATED BLOOD LOSS: 100 mL. SPECIMENS: 1. Ileostomy. 2. Colostomy. ANESTHESIA: General. INDICATIONS: This is a female who has undergone a low anterior resection and pelvic radiation for locally aggressive rectal carcinoma. She has had a long disease-free interval. She has had a long complications of diverting loop ileostomy and would like to pursue reversal of colostomy. FINDINGS: There was dense fibrotic changes of the pelvis. Although we could identify the rectal stump, it was scarred down and near obliterated and densely adherent and inseparable from the vaginal cuff. There was a loop of small bowel stuck down the pelvis. The ileostomy and mucous fistula were perfused. OPERATIVE NOTE: Risks, benefits and alternatives were discussed with the patient and she consented to the procedure. She was seen preoperatively, and surgical site was confirmed. We did alvarez her planned colostomy site. After taking her to the operating room and general anesthesia induced and preincisional antibiotics, a midline incision was made and carried down to the fascia. The fascia was incised along the midline. We entered the abdomen in an open controlled fashion. We lysed some adhesions and mobilized the small bowel out of the pelvis. We did this and it did take quite some time. Dr. Majano went from below. On rectal exam, he was unable to even get a dilator to pass in the distal rectal stump, and it was quite obliterated. As such we elected to not perform a reversal, but we did elect to convert her to an end-colostomy to hopefully help prevent some of her dehydration issues. At this point, we took down her ileostomy, which was closed prior to making skin incision with a Prolene suture and reduced this in the abdomen. At this point, we took down the mucous fistula as well in a similar fashion, taking an ellipse of skin around it. The ileostomy was reversed using a stapled [id number] functional end-to-end anastomosis, dividing some of the mesentery distally and passing the ileostomy portion off. There was no tension. It was patent and was well perfused. We reduced this back in the abdomen. At this point, we created a planned colostomy site and the colostomy was brought up through the fascia in the left upper quadrant. We irrigated the abdomen copiously, placed omentum over the small bowel. There was no injury to the small bowel during the mobilization. We noted hemostasis. The ureters were protected as well. We then closed the fascia at all 3 locations, 0 Vicryl in the ostomy sites and looped #1 PDS along the midline. The skin was closed with surgical clips. We excluded the wound at this point. The colostomy was matured in the usual fashion. I removed the staple line in a Brooking fashion. It was well perfused and patent below the fascia. Ostomy appliance was placed and gauze 4 x 4, Medipore dressing was applied. Please note custody assistant was present. Dr. Majano was present for the entirety of the case. He facilitated exposure dissection that was distorted by previous surgery and radiation. cc: Jessica Sequeira MD
[2019-07-10] MEDS: OFIRMEV 1000 MG/ISOTONIC SOLN 1,000 MG/100 ML BOTTLE IV SCH ×2 (04:00→09:06)
[2019-07-10] MEDS: ULTRAM PO PRN ×4 (04:00→20:23)
[2019-07-10 07:20] LABS: HEMATOCRIT 33.2 % (37.0-47.0); HEMOGLOBIN 10.6 g/dL (12.0-16.0); MCH 31.6 PG (27-31); MCHC 31.9 g/dL (33-37); MCV 99.1 FL (81-99); MPV 8.4 FL (7.4-10.4); RBC 3.35 XMIL (4.2-5.4); RDW 13.3 % (11.5-14.5); WBC 10.71 X1000 (4.8-10.8)
[2019-07-10 08:09] LABS: AGAP 9; BUN 9 mg/dL (8-22); CALCIUM 8.4 mg/dL (8.8-10.2); CHLORIDE 107 mmol/L (98-107); COSMO 280; CREATININE 0.6 mg/dL (0.5-0.9); ESTIMATED GFR > 60; GLUCOSE 103 mg/dL (70-104); POTASSIUM 4.1 mmol/L (3.5-5.1); SODIUM 141 mmol/L (136-145); TCO2 25 mmol/L (25-35)
[2019-07-10] MEDS: LAMICTAL PO SCH ×2 (09:07→20:23)
[2019-07-10] MEDS: PERIDEX MT SCH ×2 (09:07→20:22)
[2019-07-10] MEDS: LOVENOX SUBQ SCH (09:07)
[2019-07-10] MEDS: CYMBALTA PO SCH (09:07)
[2019-07-10] MEDS: LR 1,000 ML IV SCH ×2 (11:50→20:21)
[2019-07-10] MEDS: NEURONTIN PO SCH (20:22)
[2019-07-10] MEDS: ZOCOR PO SCH (20:22)
--- NOTE | 2019-07-10 22:13 | GENERAL SURGERY PROGRESS NOTE ---
DATE: 07/10/2019 SUBJECTIVE: She feels okay. She is moving. Ostomy is not functioning yet. She has no nausea, vomiting. No fevers. OBJECTIVE: Pulse 97, blood pressure 103/61. General: She is alert. Her abdomen is soft. The ostomy is pink, viable. The dressing is clean. White count 10, hematocrit is 33, creatinine 0.6. ASSESSMENT AND PLAN: A 53-year-old female status post reversal of diverting loop ileostomy with end-colostomy. She is doing okay. We will continue her IV fluids. She is on prophylactic Lovenox clear liquids. I have encouraged her to be out of bed and ambulating. We will follow her along. Dr. Majano is pollution control technician this weekend. cc: Jessica Sequeira MD
[2019-07-11] MEDS: DILAUDID IV PRN (04:38)
[2019-07-11] MEDS: LR 1,000 ML IV SCH ×2 (04:52→12:38)
[2019-07-11] MEDS ORDERED: BLISTEX MEDICATED BERRY LIP BALM TOP ONE (06:03)
[2019-07-11] MEDS: ULTRAM PO PRN ×3 (10:09→21:43)
[2019-07-11] MEDS: CYMBALTA PO SCH (10:09)
[2019-07-11] MEDS: LAMICTAL PO SCH ×2 (10:09→21:42)
[2019-07-11] MEDS: PERIDEX MT SCH ×2 (10:10→21:41)
[2019-07-11] MEDS: LOVENOX SUBQ SCH (10:10)
--- NOTE | 2019-07-11 13:12 | PROGRESS NOTE ---
DATE: 07/11/2019 SUBJECTIVE: Ms. Cinthia Goodman is a 53-year-old white female status post takedown of an ileostomy, and this was converted to a colostomy. She is postop day 2. There has been no output from her left-sided end colostomy. Her heart rate is 96 and blood pressure 100/60. She is afebrile. O2 saturation 96%. Her pain is pretty well controlled. She rates it as 2 to 2/10. She is eating about 25% of her liquids. PLAN: We will keep her on clear liquids for now. We will try to increase her activity, and allow her postoperative ileus to resolve. She still has her Littlejohn catheter tube in place. cc: MD Jessica Enciso MD
[2019-07-11] MEDS: NEURONTIN PO SCH (21:41)
[2019-07-11] MEDS: ZOCOR PO SCH (21:43)
[2019-07-12] MEDS: LR 1,000 ML IV SCH ×2 (03:48→16:07)
[2019-07-12] MEDS: ULTRAM PO PRN ×3 (10:57→22:30)
[2019-07-12] MEDS: CYMBALTA PO SCH (10:58)
[2019-07-12] MEDS: LAMICTAL PO SCH ×2 (10:58→22:31)
[2019-07-12] MEDS: PERIDEX MT SCH ×2 (10:58→22:31)
[2019-07-12] MEDS: LOVENOX SUBQ SCH (10:58)
--- NOTE | 2019-07-12 11:15 | PROGRESS NOTE ---
DATE: 07/12/2019 SUBJECTIVE: Ms. Cinthia Goodman is status post takedown of ileostomy with a left-sided end colostomy. This colostomy is not functioning yet. Her wounds are dressed. OBJECTIVE: She is awake. Looks well and appears comfortable. Her heart rate is 94 blood pressure 93/56, O2 saturation 94%. She is afebrile. She is on a clear liquid diet which will continue because of no output from her end colostomy at this time. cc: MD Jessica Ecniso MD
[2019-07-12] MEDS: ZOFRAN IV PRN (17:56)
[2019-07-12] MEDS: ZOCOR PO SCH (22:30)
[2019-07-12] MEDS: NEURONTIN PO SCH (22:30)
[2019-07-13] MEDS: ULTRAM PO PRN (06:16)
[2019-07-13] MEDS: LR 1,000 ML IV SCH ×3 (06:17→16:58)
[2019-07-13] MEDS: LAMICTAL PO SCH ×2 (09:18→22:47)
[2019-07-13] MEDS: CYMBALTA PO SCH (09:19)
[2019-07-13] MEDS: LOVENOX SUBQ SCH (09:19)
[2019-07-13] MEDS: PERIDEX MT SCH ×2 (09:19→22:48)
--- NOTE | 2019-07-13 11:37 | GENERAL SURGERY PROGRESS NOTE ---
DATE: 07/13/2019 SUBJECTIVE: Feels okay. Some soreness. Ostomy is not functioning yet. She is a little bloated and has some reflux. OBJECTIVE: General: On exam, she is alert. Abdomen: Soft. Incision intact. Ostomy is pink, viable with no stool in the bag. She is on prophylactic Lovenox. She is on IV fluids. ASSESSMENT/PLAN: A 53-year-old female status post ileostomy takedown and colostomy. We will encourage her to continue out of bed. Her Littlejohn is out. She is voiding, tolerating some clear liquids, waiting ostomy output. cc: Jessica Sequeira MD
[2019-07-13] MEDS: NEURONTIN PO SCH (22:47)
[2019-07-13] MEDS: ZOCOR PO SCH (22:48)
[2019-07-14] MEDS: LR 1,000 ML IV SCH (05:49)
[2019-07-14] MEDS: ULTRAM PO PRN (05:55)
[2019-07-14] MEDS: PERIDEX MT SCH ×2 (09:28→23:37)
[2019-07-14] MEDS: LOVENOX SUBQ SCH (09:28)
[2019-07-14] MEDS: LAMICTAL PO SCH (09:28)
[2019-07-14] MEDS: CYMBALTA PO SCH (09:28)
[2019-07-14] MEDS ORDERED: DUONEB (A & A) INH ONE (12:35)
--- NOTE | 2019-07-14 13:15 | Diag Imaging Result Doc PS360 ---
CHEST-2 VIEWS - 07/14/2019 INDICATION: Rule out pneumonia COMPARISON: 03/30/2019 FINDINGS: Stable right chest port in good position. There are small to moderate bilateral pleural effusions. There is some multifocal linear atelectasis in the lung bases. Otherwise no significant infiltrates. Heart size and pulmonary vascularity is normal. IMPRESSION: Bilateral pleural effusions. Linear atelectasis in the lung bases. Electronically signed by Chele Wright 07/14/2019 1:13 PM
--- NOTE | 2019-07-14 13:34 | GENERAL SURGERY PROGRESS NOTE ---
DATE: 07/14/2019 SUBJECTIVE: O2 is has been a little low on 2 L nasal cannula oxygen. The ostomy is functioning. She is not having any vomiting. She is tolerating some p.o. OBJECTIVE: On exam she has no respiratory distress. Her abdomen is soft. There is a little bit of stool in the bag. Incisions are intact. LABS: No new labs this morning. I reviewed her chest x-ray. She has small effusions bilaterally. She has a little bit of gastric distention noted but I don't see any obvious focal consolidations. PLAN: Will continue aggressive pulmonary toilet and nebulizer treatments. I will stop her IV fluids as she does have a little bit of pretibial edema. We may need to give her some Lasix. Otherwise ostomy nurse is seeing her. We will continue mobilize. cc: Jessica Sequeira MD
[2019-07-14] MEDS: DUONEB (A & A) INH SCH ×2 (15:59→23:33)
[2019-07-14] MEDS: ZOCOR PO SCH (23:38)
[2019-07-14] MEDS: NEURONTIN PO SCH (23:38)
[2019-07-15] MEDS: LAMICTAL PO SCH ×3 (00:05→22:49)
[2019-07-15] MEDS: DUONEB (A & A) INH SCH ×4 (03:18→23:35)
[2019-07-15] MEDS: ULTRAM PO PRN ×2 (03:39→18:40)
[2019-07-15] MEDS: CYMBALTA PO SCH (08:47)
[2019-07-15] MEDS: PERIDEX MT SCH ×2 (08:47→22:49)
[2019-07-15] MEDS: LOVENOX SUBQ SCH (08:47)
[2019-07-15] MEDS ORDERED: LASIX IV ONE (13:04)
--- NOTE | 2019-07-15 20:25 | GENERAL SURGERY PROGRESS NOTE ---
DATE: 07/15/2019 SUBJECTIVE: She feels short of breath. She desaturates off O2 with ambulation into the high 80s, but she is for the most part low 90s to mid 90s on 2 to 3 L nasal cannula. Her ostomy is functioning. She is tolerating a diet. Her abdomen is appropriately tender and soft. No new labs this morning. I reviewed her x-ray. She has small bilateral effusions. She does have bilateral lower extremity edema noted on exam. ASSESSMENT AND PLAN: This is a 53-year-old female. She is status post diverting loop ileostomy takedown with end-colostomy creation. She seems a little volume overloaded. I stopped her fluids yesterday, but I will give her 20 of Lasix today. Hopefully, this will help her pulmonary status. Otherwise, I will repeat her labs in the morning, evaluate her electrolytes, and hopefully if she is better tomorrow, we can go ahead and let her go home. cc: Jessica Sequeira MD
[2019-07-15] MEDS: NEURONTIN PO SCH (22:49)
[2019-07-15] MEDS: ZOCOR PO SCH (22:49)
[2019-07-16] MEDS: DUONEB (A & A) INH SCH ×4 (03:51→22:59)
[2019-07-16 08:06] LABS: HEMATOCRIT 30.8 % (37.0-47.0); HEMOGLOBIN 9.3 g/dL (12.0-16.0); MCH 30.1 PG (27-31); MCHC 30.2 g/dL (33-37); MCV 99.7 FL (81-99); RBC 3.09 XMIL (4.2-5.4); RDW 12.7 % (11.5-14.5); WBC 6.41 X1000 (4.8-10.8)
[2019-07-16 08:31] LABS: AGAP 10; BUN 2 mg/dL (8-22); CALCIUM 8.6 mg/dL (8.8-10.2); CHLORIDE 96 mmol/L (98-107); COSMO 272; CREATININE 0.6 mg/dL (0.5-0.9); ESTIMATED GFR > 60; GLUCOSE 98 mg/dL (70-104); MAGNESIUM 1.7 mg/dL (1.5-2.7); POTASSIUM 2.8 mmol/L (3.5-5.1); SODIUM 138 mmol/L (136-145); TCO2 32 mmol/L (25-35)
[2019-07-16] MEDS ORDERED: MAGNESIUM SULFATE 2 GM/S.W.I. 2 GM/50 ML IVPB IV ONE (08:40)
[2019-07-16] MEDS ORDERED: POTASSIUM CHLORIDE 20% LIQUID PO ONE ×2 (08:40→13:24)
[2019-07-16] MEDS: LOVENOX SUBQ SCH (10:24)
[2019-07-16] MEDS: LAMICTAL PO SCH ×2 (10:24→22:35)
[2019-07-16] MEDS: PERIDEX MT SCH ×2 (10:24→22:34)
[2019-07-16] MEDS: ULTRAM PO PRN ×2 (10:25→17:51)
[2019-07-16] MEDS: CYMBALTA PO SCH (10:25)
[2019-07-16] MEDS ORDERED: LASIX IV ONE (13:24)
--- NOTE | 2019-07-16 14:56 | GENERAL SURGERY PROGRESS NOTE ---
DATE: 07/16/2019 SUBJECTIVE: Shortness of breath is improved. She continues to desaturate in 80s off O2 with ambulation. Her ostomy is functioning. She is tolerating a diet and she is not have any significant abdominal pain or wound issues. Lower extremity edema is somewhat improved. We did give her Lasix yesterday evening. I have repleted her potassium and magnesium this morning. Urine output showed an appropriate response with almost 2500 of urine out noted. ASSESSMENT AND PLAN: This is a 53-year-old female status post diverting loop ileostomy with end- colostomy, history of rectal cancer. Worried about volume overload. We gently diuresed her yesterday evening. We will give her another dose of Lasix. Continue her potassium repletion. Repeat a BMP in the morning. If we can get her off O2, we will plan to let her go home. I do not have clinical suspicion for DVT. I think based off her x-ray and her exam, it is just more of a volume overload issue and I have hep-locked her fluids. Encouraged her to be out of bed and ambulate. Aggressive pulmonary toilet. We have nebulizer treatments ordered as well. cc: Jessica Sequeira MD
[2019-07-16] MEDS: DILAUDID IV PRN (22:09)
[2019-07-16] MEDS: NEURONTIN PO SCH (22:10)
[2019-07-16] MEDS: ZOFRAN IV PRN (22:29)
[2019-07-16] MEDS: ZOCOR PO SCH (22:34)
[2019-07-17] MEDS: DUONEB (A & A) INH SCH ×4 (03:52→22:25)
[2019-07-17] MEDS: ULTRAM PO PRN (07:14)
[2019-07-17] MEDS: ZOFRAN IV PRN ×2 (07:16→18:19)
[2019-07-17 08:05] LABS: AGAP 11; BUN 3 mg/dL (8-22); CALCIUM 8.5 mg/dL (8.8-10.2); CHLORIDE 95 mmol/L (98-107); COSMO 273; CREATININE 0.7 mg/dL (0.5-0.9); ESTIMATED GFR > 60; GLUCOSE 106 mg/dL (70-104); POTASSIUM 3.4 mmol/L (3.5-5.1); SODIUM 138 mmol/L (136-145); TCO2 32 mmol/L (25-35)
[2019-07-17] MEDS: CYMBALTA PO SCH (10:49)
[2019-07-17] MEDS: PERIDEX MT SCH ×2 (10:49→19:40)
[2019-07-17] MEDS: LAMICTAL PO SCH ×2 (10:50→19:39)
[2019-07-17] MEDS: LOVENOX SUBQ SCH (10:50)
--- NOTE | 2019-07-17 13:46 | Diag Imaging Result Doc PS360 ---
EXAM: CT ANGIOGRAM THORAX INDICATION: hypoxemia TECHNIQUE: This exam was performed using automated exposure control, adjustment of mA or kV according to patient size, and/or use of iterative reconstruction technique. Thin section axial images and 3-D MIPS were obtained. COMPARISON: 04/30/2019 FINDINGS: There is no evidence of pulmonary embolism. There is no evidence of aortic dissection or aneurysm. There are calcified mediastinal lymph nodes indicating prior granulomatous disease. There is no cardiomegaly. There is a stable enlarged and heterogeneous thyroid, statistically most likely multinodular goiter. Consider nonemergent evaluation with ultrasound. There is interstitial thickening bilaterally suggesting edema. There are bilateral small effusions and there is bilateral lower lung zone atelectasis, worse on the right. Limited views of the upper abdomen reveals small volume ascites tracking around the liver. IMPRESSION: 1.Interstitial thickening suggesting pulmonary edema. 2.Small bilateral pleural effusions and bilateral lower lobe atelectasis, worse on the right. 3.Small volume ascites tracking around the liver. 4.No evidence of aortic dissection or pulmonary embolism. Electronically signed by Noam Chow 07/17/2019 1:44 PM
[2019-07-17] MEDS ORDERED: LASIX IV ONE (16:22)
[2019-07-17] MEDS: ZOCOR PO SCH (19:40)
--- NOTE | 2019-07-17 20:11 | GENERAL SURGERY PROGRESS NOTE ---
DATE: 07/17/2019 SUBJECTIVE: She continues to have an O2 requirement despite 2 days of negative intake and output and diuresis. Her lower extremity edema seems better. Also too, she desaturates in the 80s and occasionally went into the 70s. She denies any shortness of breath. She did have a little nausea this morning. Her ostomy is functioning. She is not taking a lot p.o. I reviewed her labs this morning. Her potassium is up to 3.4. Creatinine 0.7. ASSESSMENT AND PLAN: This is a 53-year-old female status post end-colostomy with takedown of her diverting loop ileostomy. She still clinically seems to have some volume overload. I am going to check a CT angiogram to make sure that she does not have a pulmonary embolus, given her persistent O2 requirements. Otherwise, we will continue diuresis or anticoagulation if indicated. She has been on prophylactic Lovenox. Pain seems controlled. She is little distended on exam, but her incisions and ostomy seem well perfused. We will follow. Dr. Fernandez is institutional research coordinator this weekend. cc: Jessica Sequeira MD
[2019-07-17] MEDS: DILAUDID IV PRN (22:01)
[2019-07-17] MEDS: NEURONTIN PO SCH (22:01)
[2019-07-18] MEDS: PERIDEX MT SCH ×3 (02:09→20:37)
[2019-07-18] MEDS: ZOCOR PO SCH ×2 (02:09→20:37)
[2019-07-18] MEDS: LAMICTAL PO SCH ×3 (02:09→20:37)
[2019-07-18] MEDS: DUONEB (A & A) INH SCH ×4 (04:00→22:46)
[2019-07-18] MEDS: ZOFRAN IV PRN ×2 (06:09→19:07)
[2019-07-18] MEDS: CYMBALTA PO SCH (09:38)
[2019-07-18] MEDS: LOVENOX SUBQ SCH (09:40)
[2019-07-18] MEDS: REGLAN IV SCH ×3 (12:11→20:37)
[2019-07-18 12:41] LABS: ALLEN TEST YES; BE 11.8 mmoll (-3.0-3.0); BLOOD TYPE ARTERIAL; HCO3-(ACT) 33.9 mmoll (20.0-26.0); METHB 1.1 % (0.0-1.5); O2(CT) 13.2 mL/dL (15.0-23.0); PO2(98.6) 52 mmHg (60-100); SAMPLE BLOOD; SAO2 90.9 % (95.0-100.0); THB 10.7 g/dL (11.5-17.4); pH(98.6) 7.47 (7.35-7.45)
[2019-07-18 12:44] LABS: MODALITY CANNULA; O2HB 87.6 % (95.0-99.0); PCO2(98.6) 51 mmHg (35-45)
--- NOTE | 2019-07-18 13:13 | GENERAL SURGERY PROGRESS NOTE ---
DATE: 07/18/2019 She is afebrile. Heart rate 88, blood pressure 103/62. O2 saturation is 95% on 2 L. She says she is nauseated this morning. We will order some Reglan to help her stomach empty and perhaps this will assist with her nausea. cc: MD Jessica Puckett MD
[2019-07-18 14:25] LABS: ALLEN TEST YES; BE 12.3 mmoll (-3.0-3.0); BLOOD TYPE ARTERIAL; HCO3-(ACT) 34.5 mmoll (20.0-26.0); METHB 1.2 % (0.0-1.5); MODALITY NRB; O2(CT) 13.9 mL/dL (15.0-23.0); O2HB 93.9 % (95.0-99.0); PCO2(98.6) 46 mmHg (35-45); PO2(98.6) 68 mmHg (60-100); SAMPLE BLOOD; SAO2 97.1 % (95.0-100.0); THB 10.5 g/dL (11.5-17.4); pH(98.6) 7.51 (7.35-7.45)
[2019-07-18] MEDS ORDERED: XANAX PO ONE (18:27)
--- NOTE | 2019-07-18 19:28 | GENERAL SURGERY PROGRESS NOTE ---
DATE: 07/18/2019 Ms. Goodman seems to be breathing comfortably. She has high-flow nasal oxygen now. She really could not tolerate the mask because it caused anxiety. She is still not completely happy with the nasal oxygen but I discussed with her the fact that we might be forced to use BiPAP which would be a mask on her face, so she will try to tolerate the nasal oxygen high flow. We did give her Xanax 0.25 mg for anxiety. She has been nauseated tonight as well and we are giving her Zofran. Her hemodynamics seemed to be acceptable. cc: MD Jessica Puckett MD
[2019-07-19] MEDS: REGLAN IV SCH ×2 (02:37→04:57)
[2019-07-19] MEDS: DUONEB (A & A) INH SCH ×5 (04:00→23:23)
[2019-07-19] MEDS ORDERED: LASIX IV ONE (07:07)
--- NOTE | 2019-07-19 07:30 | GENERAL SURGERY PROGRESS NOTE ---
DATE: 07/19/2019 SUBJECTIVE: Ms. Goodman seems more content this morning. OBJECTIVE: Vital Signs: She is afebrile, heart rate 76, blood pressure 107/61. Her O2 saturation is 91 even on high-flow nasal oxygen. She is tolerating the oxygen satisfactorily. General: She did sleep some last night. Abdomen: She does have some stool in her colostomy. IMAGING: Her chest x-ray still shows a little bit of increased volume. PLAN: The plan today will be to give her some Lasix. I encouraged her to use her spirometer to expand her lower lungs as much as possible. I do think she is improving. cc: MD Jessica Puckett MD
--- NOTE | 2019-07-19 07:43 | Diag Imaging Result Doc PS360 ---
EXAM: CHEST-PORTABLE INDICATION: sob TECHNIQUE: One view COMPARISON: 07/14/2019 FINDINGS: The right chest port is in stable position. Inspiration is suboptimal. Small to moderate-sized pleural effusions are approximately stable. There is stable subsegmental atelectasis at the lung bases. There is central vascular crowding from poor inspiration and possibly a component of mild pulmonary venous congestion. Cardiac silhouette is stable. IMPRESSION: Lower lung volumes and perhaps mild pulmonary venous congestion. Stable chest, otherwise. Electronically signed by Noam Chow 07/19/2019 7:40 AM
[2019-07-19] MEDS: CYMBALTA PO SCH (08:31)
[2019-07-19] MEDS: LAMICTAL PO SCH ×2 (08:31→21:13)
[2019-07-19] MEDS: PERIDEX MT SCH ×2 (08:32→21:13)
[2019-07-19] MEDS: LOVENOX SUBQ SCH (08:32)
[2019-07-19] MEDS: ZOCOR PO SCH (21:13)
[2019-07-20] MEDS: DUONEB (A & A) INH SCH ×4 (03:11→22:56)
[2019-07-20] MEDS: CYMBALTA PO SCH (08:52)
[2019-07-20] MEDS: LAMICTAL PO SCH ×2 (08:52→21:54)
[2019-07-20] MEDS: PERIDEX MT SCH ×2 (08:53→21:54)
[2019-07-20] MEDS: LOVENOX SUBQ SCH (08:53)
[2019-07-20] MEDS ORDERED: LASIX IV ONE (17:29)
[2019-07-20] MEDS: ULTRAM PO PRN (17:49)
--- NOTE | 2019-07-20 21:00 | CONSULTATION ---
DATE OF CONSULTATION: 07/20/2019 REASON OF THE CONSULT: Hypoxemia. HISTORY OF PRESENT ILLNESS: Mrs. Goodman is a 53-year-old female with a past medical history of colon cancer status post colectomy with an ileostomy done on 03/06/2019. Actually, the procedure performed due to rectal cancer was rigid proctoscopy, laparoscopic diverting loop ileostomy, and laparoscopic peritoneal biopsy. After that, she has been having multiple procedures including cystoscopic exam and bilateral lighted externalized stent placement on 06/12/2019. The same day, she had a robotic laparoscopic-assisted low anterior resection with mucous fistula placement. 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 So, this last procedure was done on 07/09/2019 and since then she has been in the hospital and most of the time she has been hypoxemic. She seems today to be feeling better actually. She is tolerating nasal cannula as well. I do not have any new lab work today. I will get a new one tomorrow. I will give her a low dose of Lasix because I found some rales in her lungs, but she does not look too much overloaded. She does have some atelectasis, low lung volume, and probably she is not expanding completely her lungs because of the recent surgery and abdominal distention. I told the patient that she needs to use the incentive spirometer a lot to avoid lung collapse and infections. I will give her a low dose of Lasix. I will get a new chest x-ray of the thorax, 2 views, but I agree with the treatment that she is getting right now. She is on oxygen supplementation and breathing treatment. I do not think she will benefit from steroids. She denies nausea, vomiting, headache. She is tolerating a little bit of p.o., but she is not eating too much. REVIEW OF SYSTEMS: All the 14 points of review of systems were reviewed. All of them negative except as per HPI. PAST MEDICAL HISTORY: Hypertension, hyperlipidemia, recurrent due to UTIs, rectal cancer. PAST FAMILY HISTORY: Patient is adopted. SOCIAL HISTORY: She does not smoke, drink, and no drugs. PAST SURGICAL HISTORY: Please see HPI. LABORATORIES: No lab work done today. I will get a new set of lab work in the morning. PHYSICAL EXAMINATION: Vital signs: Temperature 97.9 degrees, pulse 100, respiratory rate 20, blood pressure 109/68, oxygen saturation 95% on a high-flow nasal cannula, but at this moment she is on a regular nasal cannula around 6 L. HEENT: Head normocephalic, no trauma. PERRLA. Neck: Is supple. No JVD. No masses. Central trachea. Chest: Decreased breath sounds mostly at the bases with some crepitus. Mild rales on the right base. Abdomen: Soft, protuberant, slightly to moderately distended. Midline scar. She has a wound on the right side from her previous ileostomy and there is a new ileostomy on the left side. Extremities: No edema, no clubbing, no cyanosis. Neurological: The patient is awake, alert. She is oriented x3. No focal deficits. She is not having any respiratory distress at this moment. ASSESSMENT AND PLAN: 1. Acute hypoxemic respiratory failure, she is not on home O2. Probably this is due to low lung volume, atelectasis, some fluid overload. I do not think this patient has a pneumonia. No history of chronic obstructive pulmonary disease and no wheezing on my physical exam, but decreased breath sounds mostly at the bases with some rales on the right side. I will give her a low dose of Lasix to try to help. She needs to continue with the incentive spirometer. I will get a new chest x-ray in the morning. I do believe once she improves her abdominal problem, likely she will start doing much better breathing duran. I agree with the rest of the treatment. 2. History of rectal cancer with a previous diverting loop ileostomy, status post exploratory laparotomy with lysis of adhesions, takedown of diverting loop ileostomy, takedown of colonic mucous fistula and creation of end colostomy. Procedure done on 07/09/2019. Surgery on board. I do not see any signs of infection. The abdomen is distended though. 3. Possible history of anxiety, depression, continue with home medications including duloxetine and Lamictal. 4. Hyperlipidemia. Continue with simvastatin. I will follow this patient closely. She seems to be stable. She is on a nasal cannula at this moment. I will get a new x-ray, 2 views. I will give her a low dose of Lasix today, I agree with the rest of the treatment. Thank you so much for the consult. cc: Jw Miller MD
[2019-07-20] MEDS: NEURONTIN PO SCH (21:54)
[2019-07-20] MEDS: ZOCOR PO SCH (21:54)
[2019-07-21] MEDS: DUONEB (A & A) INH SCH ×5 (03:41→23:02)
[2019-07-21 07:33] LABS: BASO# 0.08 X1000 (0.0-0.2); BASO% 0.8 % (0.0-0.8); EOS# 0.48 X1000 (0.0-0.7); HEMATOCRIT 32.5 % (37.0-47.0); HEMOGLOBIN 9.9 g/dL (12.0-16.0); IMM GRAN# 0.71 X1000 (0.0-0.04); IMM GRAN% 7.4 % (0.0-0.5); LYMPH# 0.72 X1000 (1.2-3.4); LYMPH% 7.5 % (20.5-51.1); MCH 30.4 PG (27-31); MCHC 30.5 g/dL (33-37); MCV 99.7 FL (81-99); MONO# 0.72 X1000 (0.11-0.59); MONO% 7.5 % (1.7-9.3); MPV 8.3 FL (7.4-10.4); NEUT# 6.88 X1000 (1.4-6.5); NEUT% 71.8 % (42.2-75.2); PLT 492 X1000 (130-400); RBC 3.26 XMIL (4.2-5.4); RDW 13.3 % (11.5-14.5); WBC 9.59 X1000 (4.8-10.8)
[2019-07-21 07:44] LABS: AGAP 12; BUN 8 mg/dL (8-22); CALCIUM 8.5 mg/dL (8.8-10.2); CHLORIDE 96 mmol/L (98-107); COSMO 274; CREATININE 0.8 mg/dL (0.5-0.9); ESTIMATED GFR > 60; GLUCOSE 95 mg/dL (70-104); POTASSIUM 2.9 mmol/L (3.5-5.1); SODIUM 138 mmol/L (136-145); TCO2 30 mmol/L (25-35)
[2019-07-21] MEDS ORDERED: KLOR-CON PO ONE ×2 (07:49→20:00)
[2019-07-21 08:04] LABS: EOS 5 % (1-10); LYMPHS 7 % (21-51); MONO 8 % (1-9); SEGS 80 % (42-75)
--- NOTE | 2019-07-21 08:25 | Diag Imaging Result Doc PS360 ---
EXAM: CHEST-2 VIEWS INDICATION: hypoxia TECHNIQUE: 2 views COMPARISON: 07/19/2019 FINDINGS: The right chest port is in stable position. Small effusion are approximately stable. There is subsegmental atelectasis at both lung bases. This appears to have worsened slightly on the left and there may be superimposed infiltrate at the left lung base. No other new consolidation is identified. Cardiac silhouette is stable. IMPRESSION: Slight worsening on the left as described. Stable chest, otherwise. Electronically signed by Noam Chow 07/21/2019 8:22 AM
[2019-07-21] MEDS: PERIDEX MT SCH ×2 (08:36→21:56)
[2019-07-21] MEDS: LAMICTAL PO SCH ×2 (08:37→21:57)
[2019-07-21] MEDS: LOVENOX SUBQ SCH (08:37)
[2019-07-21] MEDS: CYMBALTA PO SCH (08:37)
--- NOTE | 2019-07-21 08:52 | PROGRESS NOTE ---
DATE: 07/20/2019 SUBJECTIVE: She was on nasal cannula O2 high-flow. No fevers. OBJECTIVE: Pulse occasionally in the low 100s but mostly in the 80s and 90s. Blood pressure 109/68, oxygen saturation 95%. General: She is alert. She is in no respiratory distress. Cardiovascular: Normal rate. Abdomen is soft. Ostomy is functioning with stool in the bag. I reviewed her recent labs including ABG over the weekend. I reviewed her x-rays that showed lower lung volumes, possible pulmonary venous congestion. ASSESSMENT AND PLAN: A 53-year-old female status post diverting loop colostomy with conversion to end-colostomy. We have been diuresing her the last couple of days but she has failed to improve. I do not see evidence of embolus on her CTA. She has no obvious signs of pneumonia. I still suspect that this could be a volume overload or heart failure issue. As such, I have ordered an echocardiogram, and ask her hospitalist and her cardiology service to see her. Continue pulmonary toileting. We will follow along. cc: MD Jw Bartlett MD
--- NOTE | 2019-07-21 09:02 | ECHO REPORT ---
ORDER DATE: 07/20/2019 INTERPRETING PHYSICIAN: Jamie Dobson MD. INDICATIONS: Hypoxia, volume overload. M-MODE MEASUREMENTS: Left ventricle end diastole: 4.0 cm. Left ventricle end systole: 2.6 cm. Posterior wall: 0.9 cm. Interventricular septum: 0.9 cm. Left atrium: 3.6 cm. Aortic diameter: 3.0 cm. SUMMARY OF 2-DIMENSIONAL IMAGIN. The left ventricular function is hyperdynamic, ejection fraction appears to be in the order of 65% to 70%. There is no wall motion abnormalities. 2. The aortic valve looks normal. Color flow mapping unremarkable. 3. The mitral valve looks normal. Color flow mapping unremarkable. 4. Pulse wave Doppler of mitral inflow shows mild reversal of the E/A ratio, ratio is 0.8. 5. Tissue Doppler of septal and lateral mitral annulus averages 7 cm. 6. There is no diastolic dysfunction. 7. The tricuspid valve shows very mild degree of regurgitation. 8. The pulmonary pressure is somewhere in the range of 37-42 mmHg. 9. The atria do not appear to be enlarged. 10.I do not see evidence of pericardial effusion, no masses or thrombus. SUMMARY: This study shows: 1. Normal left ventricular systolic function. 2. Mild degree of pulmonary hypertension estimated at 37-42 mmHg. 3. No evidence of any significant valvular abnormality. 4. No diastolic dysfunction. The patient's hypoxia is not likely to be related to any specific primary cardiac condition. Clinical correlation is recommended. cc: MD Jessica Paulino MD Omar J. Sosa-Chirinos, MD
[2019-07-21] MEDS ORDERED: LASIX IV ONE (10:12)
--- NOTE | 2019-07-21 10:45 | PROGRESS NOTE ---
DATE: 07/21/2019 SUBJECTIVE: This patient is sitting at the bedside. She is not complaining of chest pain, shortness of breath or abdominal pain. Her oxygen saturation is still low and she is still requiring 6 L of oxygen through the nasal cannula. X-ray done today showed a slight worsening on the left. There is a subsegmental atelectasis at both lung bases, and like I mentioned before, it looks like it is slightly worse on the left side. There may be a superimposed infiltrate at the lung base, but she does not have symptoms to think that she has pneumonia. OBJECTIVE: Vital Signs: Temperature 98.3 degrees, pulse 102, respiratory rate 20, blood pressure 128/77 oxygen saturation 93 on 6 L of nasal cannula. HEENT: Head normocephalic. No trauma. PERRLA. Neck: Supple. No JVD. No masses. Central trachea. Chest: Decreased breath sounds globally, mostly at the bases with some crepitus, especially on the left side. Abdomen: Soft, protuberant, mildly to moderately distended, midline scar. She has a wound on the right side from her previous ileostomy and there is a new ileostomy on the left side that is working. Extremities: No edema, no clubbing, no cyanosis. Neurological: Patient is awake and alert. She is oriented x3. No focal deficits, she is not having respiratory distress. LABORATORY: WBC 9.5, hemoglobin 9.9, hematocrit 32.5, platelets 492,000, sodium 138, potassium 2.9, chloride 96, bicarbonate 30, BUN 8, creatinine 0.8, glucose 95, calcium 8.5, magnesium 2. ASSESSMENT AND PLAN: 1. Acute hypoxemic respiratory failure. This patient is not on home O2. We did an x-ray today that showed a small effusion, subsegmental atelectasis of both lung bases, especially on the left side, no new consolidation. The patient seems to be stable. We need to continue with incentive spirometer. She is having low lung volumes, probably from the surgery and abdominal distention, but she is not complaining of pain either. I will continue breathing treatment. I will give her an extra dose of Lasix today and I will replace the potassium. 2. Hypokalemia. I will replace the potassium. 3. History of rectal cancer with previous diverting loop ileostomy, status post exploratory laparotomy, laparotomy with lysis of adhesions, takedown of diverting loop ileostomy, takedown of colonic mucosal fistula and creation of end colostomy. This procedure has been done on 07/09/2019. Surgery Department on board. I do not see any signs of infection. The abdomen is distended but positive bowel sounds. 4. Possible history of anxiety, depression. Continue home medications including duloxetine and Lamictal. 5. Hyperlipidemia. She is on statins. We need to continue with breathing treatment. We need to continue with incentive spirometer and physical therapy to try to recover from this atelectasis and a little bit of fluids. She will get an extra dose of Lasix today. cc: Jw Miller MD
--- NOTE | 2019-07-21 20:37 | CARDIOLOGY CONSULTATION ---
DATE: 07/21/2019 CONSULTATION REQUESTED BY: Dr. Geoffrey Sequeira from surgery. REASON: Suspected congestive heart failure or hypoxemia. CHIEF COMPLAINT: Abdominal pain. HISTORY: Mrs. Goodman is a 53-year-old female who presented to the hospital at this time on July 09, 2019 for exploratory laparotomy with lysis of adhesions, takedown of diverting loop ileostomy, takedown of colonic mucous fistula, and creation of end-colostomy. The procedure was done uneventfully and she has been watched over the course of the ensuing days. Her chest x-ray has shown some decreased volume at the bases with question pulmonary edema noted on a CT scan of the chest. The patient really has no specific complaints of chest pain. She even does not acknowledge feeling short of breath. She is on oxygen, nasal cannula. She has incisional pain. At any rate, they requested a cardiology consultation because of the abnormal chest x-ray and a concern for pulmonary edema. Her preoperative EKG was normal. They have done an echocardiogram on her yesterday 07/20/2019, which I have reviewed and showed normal left ventricular function with mild degree of pulmonary hypertension. PAST HISTORY: The patient has no past history of any heart disease. Her past history pertains to prior diagnosis of hypertension, hyperlipidemia, history of urinary tract infection, bipolar disorder. In the latter part of February 2018, she was found to have rectal cancer and Dr. Sequeira performed initially a rigid proctoscopy with laparoscopic diverting loop ileostomy and laparoscopic peritoneal biopsy on 03/06/2018. The patient underwent radiation therapy and chemotherapy and then on 06/12/2019 she underwent robotic laparoscopic-assisted low anterior resection with mucous fistula placement and lighted ureteral stents placed by Dr. Pratt. The procedure went well and the patient was subsequently discharged a few days later. Since then, she has had no further issues. There has been no recurrence of cancer and that is why they decided to reverse the ileostomy. PAST SURGICAL HISTORY: In addition to aforementioned bowel surgery, includes hysterectomy, hip surgery, knee surgery. SOCIAL HISTORY: The patient lives with parents. She is not a smoker nor drinker. She works at [employer]. She has been doing that for the past 14 years. FAMILY HISTORY: Negative. The patient is adopted. HOME MEDICATIONS: At the time of the present admission included alprazolam 0.5 mg at bedtime, Cymbalta 2 tablets in the morning, gabapentin 100 mg at bedtime, lamotrigine 2 tablets in the morning, simvastatin 40 mg at bedtime. ALLERGIES: Negative. REVIEW OF SYSTEMS: Prior to this admission for elective surgery, she had no cardiovascular complaints of any kind. No positive findings on the multiple system review. PHYSICAL EXAMINATION: Vital signs: Blood pressure 114/77, temperature 98.3 degrees, pulse 100 per minute, respirations 20. She is awake, alert, oriented, in no distress. HEENT: Unremarkable. Chest: Shows diminished breath sounds bilaterally. Heart: Sounds are regular rhythmic. No gallop or murmur. Abdomen: Slightly prominent, slightly tender. Extremities: Showed no edema. Neurological: She follows commands and moves 4 extremities. BLOOD WORK: Her hemoglobin 9.9, hematocrit 32.5, white cell count is normal. Sodium 138, potassium 2.9. Potassium has been replaced by the hospitalist. BUN and creatinine are normal. IMPRESSION: 1. Patient who has hypoxemia and abnormal chest x-ray, probably related to pulmonary atelectasis in connection with her recent abdominal surgery. 2. History of rectal cancer. 3. History of hyperlipidemia, hypertension. 4. 12th postoperative day following end colostomy and take down of diverting loop ileostomy. RECOMMENDATION: At this time, I would suggest to pursue aggressive respiratory therapy to improve the atelectasis. Cardiac-duran, there is really no specific intervention. Judicious diuretic use to minimize fluid overload and keep up with electrolyte imbalances as the hospitalist is doing. The patient does not require cardiology follow-up unless something else shows up in the future. Please call me if you need further assistance. cc: MD Jw Paulino MD [facility]
--- NOTE | 2019-07-21 20:38 | GENERAL SURGERY PROGRESS NOTE ---
DATE: 07/21/2019 SUBJECTIVE: Seems to be breathing more comfortably. She is sitting in the bed. She continues to diurese. No fevers. Heart rate is occasional low 100s. She is on 6 L nasal cannula saturating in the low 90s. General: She is alert. Abdomen is soft. Incision intact. Ostomy is pink, viable, stool in the bag. LAB: White count 9, hematocrit 32, creatinine is 0.8, potassium is a little low. I reviewed her echocardiogram showed normal ejection fraction. She also had a chest x-ray that shows small effusions, atelectasis of both lungs. ASSESSMENT AND PLAN: This is a 53-year-old female postoperative from diverting loop ileostomy takedown colostomy. She has had hypoxia which is been relatively refractory. I do suspect pulmonary toileting, poor aspiration is a major contributing factor. Cardiac etiology has been ruled out. She does not have a pulmonary embolus and she has been diuresed and is clinically becoming more euvolemic. She may ultimately require home O2. I would like to get her down off of 6 L to more reasonable level prior to this and I have encouraged incentive spirometry and ambulation. Otherwise, from abdominal standpoint she seems to be progressing well. cc: MD Jw Bartlett MD
[2019-07-21] MEDS: NEURONTIN PO SCH (21:56)
[2019-07-21] MEDS: ZOCOR PO SCH (21:56)
[2019-07-22] MEDS: NEURONTIN PO SCH ×2 (00:56→21:44)
[2019-07-22] MEDS: DUONEB (A & A) INH SCH ×4 (03:43→21:58)
[2019-07-22 08:43] LABS: AGAP 10; BUN 8 mg/dL (8-22); CALCIUM 8.9 mg/dL (8.8-10.2); CHLORIDE 99 mmol/L (98-107); COSMO 278; CREATININE 0.8 mg/dL (0.5-0.9); ESTIMATED GFR > 60; GLUCOSE 99 mg/dL (70-104); POTASSIUM 3.6 mmol/L (3.5-5.1); SODIUM 140 mmol/L (136-145); TCO2 31 mmol/L (25-35)
[2019-07-22] MEDS: LOVENOX SUBQ SCH (09:21)
[2019-07-22] MEDS: CYMBALTA PO SCH (09:21)
[2019-07-22] MEDS: LAMICTAL PO SCH ×2 (09:21→21:43)
[2019-07-22] MEDS: PERIDEX MT SCH ×2 (09:22→21:45)
--- NOTE | 2019-07-22 16:57 | PROGRESS NOTE ---
DATE: 07/22/2019 SUBJECTIVE: When I evaluated this patient, she was walking inside the room without any problem. She is not complaining of shortness of breath, but she is still requiring oxygen, cardiology department evaluated this patient and it looks like she does not have any cardiac issues at this moment. I will continue with the same management, incentive spirometer and I asked the patient to take deep breaths but this is really difficult for her. Probably because of the abdominal surgery. OBJECTIVE: Vital Signs: Temperature 97.8 degrees, pulse 98, respiratory rate 19, blood pressure 114/72. Oxygen saturation 97% on 5 L nasal cannula. HEENT: Head normocephalic. No trauma. PERRLA. Neck: Supple. No JVD. No masses. Central trachea. Chest: Decreased breath sounds globally mostly at the bases with some crepitus, especially on the left. Abdomen: Soft, protuberant, mildly to moderately distended. Midline scar. She has a wound on right side from previous ileostomy and there is a new ileostomy on the left side that is working. Extremities: No edema. No clubbing. No cyanosis. Neurological: The patient is awake, alert. She is oriented x3. No focal deficits, she is not having any respiratory issues or distress. LABORATORY: Sodium 140, potassium 3.6, chloride 99, bicarbonate 31, BUN 8, creatinine 0.8, glucose 99, calcium 8.9. ASSESSMENT AND PLAN: 1. Acute hypoxemic respiratory failure. This patient is not on home O2. X-ray showed small effusion, subsegmental atelectasis above both lung bases, especially on the left side, no new consolidation. The patient seems to be stable. Continue with incentive spirometer. 2. Cardiology department rule out any kind of cardiac issues. She is not taking deep breaths. Probably this is the cause of the atelectasis and hypoxemia. 3. Hypokalemia resolved. 4. History of rectal cancer with previous diverting loop ileostomy, status post exploratory laparotomy with lysis of adhesions, takedown of diverting loop ileostomy, takedown of colonic mucosal fistula and creation of end colostomy. This procedure has been done on 07/09/2019. Surgery department on board. I do not see any signs of infection. Abdomen is distended, but she does have some bowel sounds. 5. Possible history of anxiety/depression. Continue with home medications including duloxetine and Lamictal. 6. Hyperlipidemia. She is on statins. We need to continue breathing treatment and specially incentive spirometer. Physical therapy, walking, I am not going to give her Lasix today. I think she is stable. For her DVT prophylaxis, we will continue with Lovenox. cc: Jw Miller MD
--- NOTE | 2019-07-22 20:45 | GENERAL SURGERY PROGRESS NOTE ---
DATE: 07/22/2019 SUBJECTIVE: She feels great and wants to go home, but she remains on 5 L nasal cannula with desaturations into the 80s when she is off of it. She is ambulating and participating in pulmonary toilet. Her ostomy is functioning. Abdomen feels well. Her incision is healing well. Her potassium is up to 3.6; it is better than yesterday. Creatinine 0.8. ASSESSMENT AND PLAN: This is a 53-year-old female status post conversion to end colostomy. She has had persistent low oxygen saturations over the last several days despite diuresis. She has no pneumonia, no evidence of pulmonary embolus, and her echocardiogram was normal. We will work to wean her down to a more reasonable level, 2 to 3 L. Hopefully tomorrow we can let her go home with home oxygen, and work to get it off the rest of the way. Stressed the importance of pulmonary toileting, deep breathing, and ambulation. She understands. cc: MD Jw Bartlett MD
[2019-07-22] MEDS: ZOCOR PO SCH (21:43)
[2019-07-22] MEDS ORDERED: MYLICON PO PRN (22:31)
[2019-07-23] MEDS: DUONEB (A & A) INH SCH ×2 (03:43→12:42)
[2019-07-23] MEDS: CYMBALTA PO SCH (08:32)
[2019-07-23] MEDS: LOVENOX SUBQ SCH (08:32)
[2019-07-23] MEDS: PERIDEX MT SCH (08:32)
[2019-07-23] MEDS: LAMICTAL PO SCH (08:32)
[2019-07-23 13:34] VITALS: BP 112/81
--- NOTE | 2019-07-23 14:39 | PROGRESS NOTE ---
DATE: 07/23/2019 SUBJECTIVE: The patient seems to be stable. Her oxygen requirement is less compared to yesterday. It is between 3 and 4 L. I believe Surgery Department will discharge this patient and I agree with that. PHYSICAL EXAMINATION: Vital Signs: Temperature 97.4 degrees, pulse 100, respiratory rate 22, blood pressure 124/81, oxygen saturation 92 on 3 L of nasal cannula. HEENT: Head normocephalic. No trauma. PERRLA. Neck: Supple. No JVD. No masses. Central trachea. Chest: Clear to auscultation. No wheezing. Some crepitus at the bases, especially on the left. Abdomen: Soft, protuberant. Mildly to moderately distended. Midline scar. She has a wound on the right side from previous ileostomy and there is a new ileostomy on the left side, which is working fine. The bag is full of stool. Extremities: No edema, no clubbing, no cyanosis. Neurological: The patient is awake and alert. She is oriented x3. No focal deficits. LABORATORY: 1. No lab work done today. Laboratory from yesterday within normal limits. ASSESSMENT AND PLAN: 1. Acute hypoxemic respiratory failure. She is not on home O2 and her oxygen requirement is less compared with yesterday. She has some subsegmental atelectasis in both lung bases, especially on the left side. No new consolidation. Patient seems to be stable. 2. Cardiology Department to rule out any kind of cardiac related issues. 3. Hypokalemia, resolved. 4. History of rectal cancer with previous diverting ileostomy, status post exploratory laparotomy with lysis of adhesions, takedown of diverting loop ileostomy, takedown of colonic mucosal fistula and creation of end colostomy. This procedure has been done on 07/09/2019. 5. Possible history of anxiety and depression. Continue home medications. 6. Hyperlipidemia. Continue with statins. cc: Jw Miller MD
--- NOTE | 2019-07-23 23:24 | DISCHARGE SUMMARY ---
ADMISSION DATE: 07/09/2019 DISCHARGE DATE: 07/23/2019 ADMITTING DIAGNOSIS: Rectal carcinoma. POSTOPERATIVE DIAGNOSIS: Rectal carcinoma. PROCEDURE PERFORMED DURING ADMISSION: Conversion of diverting loop ileostomy to end-colostomy. CONSULTING SERVICES: The hospitalist and Cardiology service. HISTORY OF PRESENT ILLNESS: This is a 53-year-old female who has had a complicated history related to metastatic rectal carcinoma. She presented after a disease-free interval for colostomy reversal. HOSPITAL COURSE: The patient was taken to the operating room on the for above procedure. For details, see dictated operative note. She progressed as expected from a [id number]- function standpoint and had ostomy teaching. However, she developed persistent O2 requirement starting on really the . We diuresed her as she had lower extremity edema and minimized her IV fluids and, despite diuresis and electrolyte repletion, this persisted. A CT angiogram did not show pulmonary embolus. This was obtained on the 17 of July. Cardiology and hospitalists were consulted as we felt she does not have pneumonia and no embolus and we had been diuresing her. An echocardiogram was obtained that showed normal ejection fraction and ultimately, through pulmonary toileting, she was able to wean to 3 L nasal cannula and was doing well. We felt safe to send her home as she has an attentive family. Her incision was intact. Her ostomy is pink and viable, is functioning well with no issues with pouching. LABORATORIES: Her white blood cell count was normal. Hematocrit was 32, creatinine 0.8, potassium was 3.6. Magnesium most recently was 2. DISPOSITION: Home with home health and home O2, 2 to 3 L. Disposition to home under the care of her family. DISCHARGE INSTRUCTIONS: Given in a written and verbal format. Follow up appointment is with me in a week to assess her O2 and remove her lambert. She will also follow with her primary doctor. DISCHARGE DIET: GI soft. MEDICATIONS: Continue home medications. cc: MD Jw Bartlett MD
== END 2019-07-23 14:32 | disposition home or self-care (01) | DRG 330 ==
LOC: SURHOLD 05:21 → 4N 09:55
PROVIDERS: ADMIT Internal Medicine; ATTEND Surgery